=== PATIENT | female | born 1990 | race American Indian/Alaskan Native ===

== ENCOUNTER → 2021-02-25 11:16 | Outpatient (CLI) | payer OTHER, SELFPAY ==
--- NOTE | 2021-02-25 11:19 | DI.US.S_ITS ---
PROCEDURE: US OB <= 14 WEEKS FETUS INDICATIONS: DATING OUTSIDE/PRIOR DATING DATA: Last menstrual period (LMP): 12/17/2020. LMP-based estimated date of delivery (CHRISTINA): 09/23/2021. First dating scan (date and location): 02/25/2021. Estimated date of delivery (CHRISTINA) from first dating scan: 09/21/2021. TECHNIQUE: Real-time scanning was performed of the fetus and maternal pelvic organs, with image documentation. Endovaginal scanning was also performed to better visualize the fetus and maternal ovaries. COMPARISON: None. FINDINGS: Embryo: Single live intrauterine is identified with crown-rump length measuring 3.4 cm corresponding to 10 weeks 2 days. No sac is present. Heart rate: 175 beats per minute. Measurement variability in dating: +/- 4 weeks by LMP, +/- 7 days by mean sac diameter (use before 6 weeks gestation if crown-rump length not able to be measured), +/- 5 days by crown-rump length (up to 8 weeks 6 days gestation), +/- 7 days by crown-rump length (up to 13 weeks 6 days gestation). Maternal organs: Ovaries demonstrate a probable left corpus luteal cyst. Mild fluid is noted within the cervical canal. . IMPRESSION: 1. Single live intrauterine with ultrasound gestational age of 10 weeks 2 days. 2. Recommend followup imaging at 20-22 weeks for dates and anatomy. Dictated by: Mamie Angel M.D. on 02/25/2021 at 12:39 Approved by: Mamie Angel M.D. on 02/25/2021 at 12:41
[2021-02-25 12:53] LABS: Appearance Urine UA CLEAR; Bilirubin Urine UA NEGATIVE (NEGATIVE); Color Urine UA YELLOW; Glucose Urine UA NEGATIVE (Negative); Ketones Urine UA NEGATIVE (NEGATIVE); Leukocyte Esterase Urine UA NEGATIVE (NEGATIVE); Nitrite Urine UA NEGATIVE (Negative); Occult Blood Urine UA NEGATIVE (Negative); Protein Urine UA NEGATIVE (Negative); Specific Gravity Urine UA <=1.005 (1.000-1.035); Urobilinogen Urine UA 0.2 E.U./dL (0.2)
[2021-02-25 13:00] LABS: Add Manual Diff / Slide Review NO; Basophils Absolute Auto 100 /uL (0-100); Basophils Percent Auto 0.7 % (0-2); Eosinophils Absolute Auto 300 /uL (0-450); Eosinophils Percent Auto 3.1 % (2-4); Hematocrit 36.9 % (36-46); Hemoglobin 12.7 g/dL (12.0-16.0); Lymphocytes Absolute Auto 1600 /uL (1100-4500); Lymphocytes Percent Auto 17.7 % (25-40); Mean Corpuscular HGB Conc 34.3 % (30-36); Mean Corpuscular Hemoglobin 31.8 PG (26-34); Mean Corpuscular Volume 92.6 fL (80-100); Monocytes Absolute Auto 600 /uL (0-900); Neutrophils Absolute Auto 6700 /uL (1500-7000); Neutrophils Percent Auto 72.5 % (50-75); Platelet Count 235 X10^3/uL (150-400); Red Blood Cell Count 3.98 X10^6/uL (4.0-5.2); White Blood Cell Count 9.2 X10^3/uL (4.5-11.0)
[2021-02-25 13:07] LABS: pH Urine UA 6.5 (4.5-8.0)
[2021-02-25 18:12] LABS: Hepatitis B Surface Antigen NEGATIVE s/c (NEGATIVE)
[2021-02-25 18:20] LABS: HIV 1 & 2 Ab/Ag 4th Gen Combo NEGATIVE (NEGATIVE); Hep C Virus Ab w/Reflex Quant NEGATIVE s/c (NEGATIVE)
[2021-02-26 06:34] LABS: RPR Screen Non Reactive (Non Reactive)
[2021-02-26 09:42] LABS: Varicella IgG Antibody 353 index (Immune >165)
[2021-03-01 13:42] LABS: Rubella Antibody IgG 22.4 IU/mL (>15)
== END ==
PROVIDERS: Referring Provider Obstetrics & Gynecology; Visit Provider Obstetrics & Gynecology
DX: O36.80X0 Pregnancy with inconclusive fetal viability, not applicable or unspecified (principal); Z34.81 Encounter for supervision of other normal pregnancy, first trimester; Z3A.10 10 weeks gestation of pregnancy
CPT/HCPCS: 36415; 76801; 76817; 80055; 81003; 86787; 86803; 86850; 86900; 86901; 87086; 87389

== ENCOUNTER → 2021-03-11 13:05 | Outpatient (CLI) | payer OTHER, SELFPAY ==
[2021-03-11 13:19] LABS: Specimen Label NATERA SEND OUT KIT
== END ==
PROVIDERS: Referring Provider Obstetrics & Gynecology; Visit Provider Obstetrics & Gynecology
DX: Z36.0 Encounter for antenatal screening for chromosomal anomalies (principal)
CPT/HCPCS: 36415

== ENCOUNTER → 2021-04-01 15:28 | Outpatient (CLI) | payer OTHER, SELFPAY ==
[2021-04-03 22:35] LABS: AFP Value 28.2 ng/mL (.); Insulin Dep Diabetes No (.); OSBR Risk 1IN 10000 (.); Results Report (.); Test Results *Screen Negative* (.)
== END ==
PROVIDERS: Referring Provider Obstetrics & Gynecology; Visit Provider Obstetrics & Gynecology
DX: Z34.82 Encounter for supervision of other normal pregnancy, second trimester (principal); Z3A.16 16 weeks gestation of pregnancy
CPT/HCPCS: 36415; 82105

== ENCOUNTER → 2021-05-07 14:11 | Outpatient (CLI) | payer BC, OTHER, SELFPAY ==
--- NOTE | 2021-05-07 14:13 | DI.US.S_ITS ---
PROCEDURE: US OB >= 14 WEEKS FETUS INDICATIONS: 20 Week Anatomy Scan OUTSIDE/PRIOR DATING DATA: Last menstrual period (LMP): 12/17/2020. LMP-based estimated date of delivery (CHRISTINA): 09/23/2021. First dating scan (date and location): 02/25/2021. Estimated date of delivery (CHRISTINA) from first dating scan: 09/21/2021. The calculations are made using the ultrasound arrived CHRISTINA of 09/21/2021. TECHNIQUE: Real-time scanning was performed of the fetus, with image documentation and biometric measurements. COMPARISON: [facility], OB <= 14 WEEKS FETUS, 02/25/2021, 11:21. FINDINGS: General: A single living intrauterine gestation is present. Presentation: Variable. Placenta: Placental position is anterior , without previa. Amniotic fluid index: 14.8 cm, normal range is 5-24 cm. Single deepest vertical pocket is 4.3 cm. heart rate: 143 beats per minute. Maternal cervical canal: 5.7 cm long. Normal lower limit is 2.5 cm. biometrics: Biparietal diameter: 5 cm, 21 weeks 0 days Head circumference: 18.7 cm, 21 weeks 0 days Abdominal circumference: 16.7 cm, 21 weeks 5 days Femur length: 3.7 cm, 21 weeks 5 days Estimated gestational age from initial ultrasound: 20 weeks 3 days Composite gestational age from present scan: 21 weeks 3 days Estimated weight and percentile: 437 g corresponding to the 96th percentile Anatomic survey: Neuro: Ventricles are non-dilated at less than 10 mm. Cisterna magna is normal at 3-11 mm. Cerebellum is normal in size and morphology. Nuchal skin fold: Normal at less than 6 mm between 14-21 weeks gestational age. Face: Nose and lips, facial profile are normal. Spine: No evidence for spina bifida. Heart: 4-chambered heart is present, with normal ventricular outflow tracts. Diaphragm: Diaphragm is intact. Stomach: Left-sided stomach is present. Kidneys: No hydronephrosis. Normal is less than 5 mm in 2nd trimester, less than 7 mm in 3rd trimester. Cord: 3-vessel cord has orthotopic insertion. Bladder: Normal in size. Extremities: All 4 extremities identified. IMPRESSION: 1. Single living intrauterine demonstrating interval growth with estimated weight at the 96th percentile, suggestive of developing macrosomia. Recommend correlation clinically and continued follow-up. 2. anatomic survey within normal limits. We strive to produce accurate, complete, and clear reports of imaging services. To assist us in improving patient care, this report was composed using standard report templates and voice recognition software. Therefore, it may contain abnormal punctuation, insertions and/or omissions. Occasional wrong-word or sound-alike substitutions may occur. Though we review the report and make efforts to correct it, we do recommend that the report be read carefully in proper context to recognize any text inaccuracies. Dictated by: Kirill Zacarias M.D. on 05/07/2021 at 15:56 Approved by: Kirill Zacarias M.D. on 05/07/2021 at 16:00
== END ==
PROVIDERS: Referring Provider Obstetrics & Gynecology; Visit Provider Obstetrics & Gynecology
DX: Z34.92 Encounter for supervision of normal pregnancy, unspecified, second trimester (principal); Z3A.20 20 weeks gestation of pregnancy
CPT/HCPCS: 76811

== ENCOUNTER → 2021-06-17 12:54 | Outpatient (CLI) | payer BC, OTHER, SELFPAY ==
[2021-06-17 15:15] LABS: Hematocrit 33.5 % (36-46); Hemoglobin 11.4 g/dL (12.0-16.0)
[2021-06-17 15:43] LABS: GTT (PREG) 1 Hour PP 50gm Dose 130 mg/dL (76-139)
== END ==
PROVIDERS: Referring Provider Obstetrics & Gynecology; Visit Provider Obstetrics & Gynecology
DX: Z34.82 Encounter for supervision of other normal pregnancy, second trimester (principal); Z3A.25 25 weeks gestation of pregnancy
CPT/HCPCS: 36415; 82950; 85014; 85018

== ENCOUNTER → 2021-07-30 15:34 | Outpatient (CLI) | payer BC, OTHER, SELFPAY ==
[2021-07-30 17:02] LABS: Add Manual Diff / Slide Review NO; Basophils Absolute Auto 0 /uL (0-100); Basophils Percent Auto 0.3 % (0-2); Eosinophils Absolute Auto 200 /uL (0-450); Eosinophils Percent Auto 1.7 % (2-4); Lymphocytes Absolute Auto 2200 /uL (1100-4500); Lymphocytes Percent Auto 15.1 % (25-40); Mean Corpuscular HGB Conc 34.3 % (30-36); Mean Corpuscular Hemoglobin 32.8 PG (26-34); Mean Corpuscular Volume 95.8 fL (80-100); Monocytes Absolute Auto 700 /uL (0-900); Monocytes Percent Auto 4.6 % (3-14); Neutrophils Absolute Auto 11100 /uL (1500-7000); Neutrophils Percent Auto 78.3 % (50-75); Platelet Count 181 X10^3/uL (150-400); Red Blood Cell Count 3.65 X10^6/uL (4.0-5.2); Red Cell Distribution Width 12.4 % (11.6-14.8); White Blood Cell Count 14.3 X10^3/uL (4.5-11.0)
[2021-07-30 17:25] LABS: Alanine Aminotransferase 25 IU/L (<35); Albumin 4.1 g/dL (3.5-5.0); Albumin Globulin Ratio 1.1 (1.0-2.8); Alkaline Phosphatase 106 U/L (38-126); Aspartate Aminotransferase 28 IU/L (14-36); BUN Creatinine Ratio 11.9 (6-22); Bilirubin Total 0.6 mg/dL (0.2-1.3); Blood Urea Nitrogen 7 mg/dL (7-17); Carbon Dioxide 21 mmol/L (22-32); Chloride 103 mmol/L (98-107); Estimated Glomerular Filt Rate > 60 mL/min (>60); Globulin 3.9 g/dL (1.7-4.1); Glucose 148 mg/dL (70-100); HEMOLYSIS < 15 (0-50); Potassium 3.9 mmol/L (3.4-5.1); Sodium 136 mmol/L (137-145); Uric Acid 4.8 mg/dL (2.5-6.2)
[2021-07-30 19:28] LABS: Creatinine Urine Random 30.7 mg/dL; Protein (Total) Urine Random 11 mg/dL (0-12); Protein Creatinine Ratio Urine 0.35 GRAM/24H
== END ==
PROVIDERS: Obstetrics & Gynecology; Referring Provider Family Medicine; Visit Provider Family Medicine
DX: O16.9 Unspecified maternal hypertension, unspecified trimester (principal)
CPT/HCPCS: 36415; 80053; 82570; 84156; 84550; 85025

== ENCOUNTER 2021-08-01 12:17 | Observation (INO) | payer BC, OTHER, SELFPAY ==
--- NOTE | 2021-08-01 | DI.US.S_ITS ---
PROCEDURE: US OB LIMITED INDICATIONS: PRE-ECLAMPSIA; EFW, CORD DOPPLER OUTSIDE/PRIOR DATING DATA: Last menstrual period (LMP): 12/17/2020. LMP-based estimated date of delivery (CHRISTINA): 09/23/2021. First dating scan (date and location): 02/25/2021 at . Estimated date of delivery (CHRISTINA) from first dating scan: 09/21/2021. TECHNIQUE: Real-time scanning was performed of the fetus, with image documentation and biometric measurements. Biophysical profile was also obtained. COMPARISON: [facility], OB >= 14 WEEKS FETUS, 05/07/2021, 14:26. [facility], OB <= 14 WEEKS FETUS, 02/25/2021, 11:21. FINDINGS: General: A single living intrauterine gestation is present. Presentation: Vertex. Placenta: Placental position is anterior , without previa. Amniotic fluid index: 7.3 cm, normal range is 5-24 cm. Single deepest vertical pocket is 2.3 cm. heart rate: 136 beats per minute. Maternal cervical canal: 3.4 cm long. Normal lower limit is 2.5 cm. biometrics: Biparietal diameter: 33 weeks 3 days Head circumference: 32 weeks 5 days Abdominal circumference: 32 weeks 1 day Femur length: 33 weeks 1 day Clinically estimated gestational age: 32 weeks 5 days Composite gestational age from present scan: 32 weeks 6 days Estimated weight and percentile: 2015 g; 37% Umbilical artery Doppler: S/D = 2.2-3.5 IMPRESSION: 1. A single living intrauterine gestation redemonstrated. There is appropriate interval growth. The estimated weight is 2015 g, 37% for gestational age. 2. Normal cord Doppler with preserved diastolic flow. 3. VICKEY = 7.3 cm, concerning for developing oligohydramnios. We strive to produce accurate, complete, and clear reports of imaging services. To assist us in improving patient care, this report was composed using standard report templates and voice recognition software. Therefore, it may contain abnormal punctuation, insertions and/or omissions. Occasional wrong-word or sound-alike substitutions may occur. Though we review the report and make efforts to correct it, we do recommend that the report be read carefully in proper context to recognize any text inaccuracies. Dictated by: Thanh Mantilla M.D. on 08/01/2021 at 14:36 Approved by: Thanh Mantilla M.D. on 08/01/2021 at 14:44
[2021-08-01 12:53] LABS: Add Manual Diff / Slide Review YES; Hematocrit 33.6 % (36-46); Hemoglobin 11.4 g/dL (12.0-16.0); Mean Corpuscular Hemoglobin 32.5 PG (26-34); Mean Corpuscular Volume 95.4 fL (80-100); Platelet Count 190 X10^3/uL (150-400); Red Blood Cell Count 3.53 X10^6/uL (4.0-5.2); Red Cell Distribution Width 12.3 % (11.6-14.8); White Blood Cell Count 13.7 X10^3/uL (4.5-11.0)
--- NOTE | 2021-08-01 13:16 | PM.OBTRLD ---
Visit Information Visit Information Date of evaluation: 08/01/21 Primary OB Provider: Cyrus Bocanegra Reason for Evaluation: Yes non-stress test Comments/Additional reasons for admission: Patient has experienced elevated blood pressure and her most recent protein to creatinine ratio is elevated at 0.35. Patient presents today for her 1st twice weekly NST and laboratory assessment along with a growth ultrasound and Doppler studies. Patient is scheduled to be seen at [facility] next week and has been started on labetalol 200 mg p.o. b.i.d.. Vital Signs Vital Signs: 133/81; 132/83; 133/85; 124/73 [facility] Medical History (Updated 08/01/21 @ 17:56 by Cyrus Bocanegra MD) Abnormal Pap smear of cervix (~2009) Chicken pox (~1993) Generalized anxiety disorder with panic attacks Heart murmur of Migraine (~2020) Surgical History (Updated 03/16/21 @ 20:05 by More Macias) [place] teeth extracted Family History (Updated 03/16/21 @ 20:07 by More Macias) Mother Alcoholic Family estrangement Father Myocardial infarction Stented coronary artery Grandmother Asthma Colostomy in place Grandfather Alcoholic Family history unknown Grandmother No problems noted. 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 ) substance use type: does not use during the past year weight has: remained stable well-balanced diet: daily or most days daily servings fruits/ve-4 caffeine: Yes (1/2 cup coffee daily. Cutting back on soda.) Type(s) of exercise: walking (daily walks and hiking), resistance training (Strength training & pilates. ) and yoga frequency: 3-4 times per week duration: 30-45 minutes/day Exam Const General: cooperative and comfortable Nutritional Appearance: average body habitus Orientation: alert and oriented x3 HENMT Head: normal to inspection Face and sinus: face symmetric Eyes General: appearance normal, both eyes and all related structures Neck Neck: normal visual inspection Resp Effort & Inspection: normal respiratory effort and able to speak in complete sentences Cardio Rate: regular rate Rhythm: regular rhythm Heart Sounds: S1 normal, S2 normal and no murmurs GI Inspection: normal to inspection Palpation: soft and no hepatosplenomegaly Uterus Location (Fundal Height): 34 Estimated Weight (lbs): 4 Extrem General: no calf tenderness and edema (Trace pedal edema, symmetrical) Psych Appearance: grossly normal Mental Status: mental status grossly normal Speech and Movement: speech and movement normal Mood: congruent mood Affect: normal affect Attitude: cooperative Thought Process: normal Thought Content: normal Judgment: judgment good Objective Labs Result Diagrams: 08/01/21 12:40 Labs: Laboratory Results - last 24 hr 08/01/21 12:40 WBC 13.7 H RBC 3.53 L Hgb 11.4 L Hct 33.6 L MCV 95.4 MCH 32.5 MCHC 34.0 RDW 12.3 Plt Count 190 Neut % (Auto) Not Reportable Lymph % (Auto) Not Reportable [place] % (Auto) Not Reportable Eos % (Auto) Not Reportable Baso % (Auto) Not Reportable Lymph # (Auto) Not Reportable [place] # (Auto) Not Reportable Baso # (Auto) Not Reportable Evaluation Evaluation Baseline heart rate: 125 Variability: Marked (>25) monitor accelerations: Present Monitor Decelerations: Absent Contraction Frequency (minutes): 3 Uterine Contraction Intensity: Mild Status: Category l Comments: Patient does not feel contractions or cramping despite regular contractions seen on external monitoring. Diagnosis, Plan/Disposition Final Diagnosis (1) Pre-eclampsia affecting , antepartum: Status: Acute (2) UTI (urinary tract infection): Status: Acute Plan/Disposition Plan: Increasing protein to creatinine ratio is concerning but in the face of probable UTI based on urinalysis, will treat the UTI, closely observe blood pressures at home, initiate Macrodantin 100 mg p.o. b.i.d. and labetalol 200 mg p.o. b.i.d.. Patient again counseled regarding signs/symptoms of severe blood pressure elevations/preeclampsia. Follow-up will be on Wednesday08/05/2021 for NST and labs or as needed. OB Disposition: home
[2021-08-01 13:25] LABS: Neutrophils Absolute Manual 10686 /uL (3000-5900); Total Cells Counted 100
[2021-08-01 13:26] LABS: RBC Morphology Normal Morphology
[2021-08-01 13:36] LABS: Creatinine Urine Random 16.1 mg/dL; Protein (Total) Urine Random 12 mg/dL (0-12); Protein Creatinine Ratio Urine 0.74 GRAM/24H
[2021-08-01 14:30] LABS: Appearance Urine UA CLEAR; Bilirubin Urine UA NEGATIVE (NEGATIVE); Color Urine UA YELLOW; Glucose Urine UA NEGATIVE (Negative); Ketones Urine UA NEGATIVE (NEGATIVE); Leukocyte Esterase Urine UA TRACE (NEGATIVE); Nitrite Urine UA NEGATIVE (Negative); Occult Blood Urine UA NEGATIVE (Negative); Protein Urine UA NEGATIVE (Negative); Specific Gravity Urine UA <=1.005 (1.000-1.035); Urobilinogen Urine UA 0.2 E.U./dL (0.2)
[2021-08-01 14:32] LABS: Alanine Aminotransferase 22 IU/L (<35); Albumin 3.9 g/dL (3.5-5.0); Albumin Globulin Ratio 1.1 (1.0-2.8); Alkaline Phosphatase 123 U/L (38-126); Aspartate Aminotransferase 26 IU/L (14-36); Bilirubin Total 0.5 mg/dL (0.2-1.3); Bilirubin Unconjugated 0.7 mg/dL (0.0-1.1); Globulin 3.5 g/dL (1.7-4.1); HEMOLYSIS < 15 (0-50); Total Protein 7.4 g/dL (6.3-8.2); Uric Acid 4.1 mg/dL (2.5-6.2)
[2021-08-01 14:35] LABS: pH Urine UA 6.5 (4.5-8.0)
[2021-08-01 14:36] LABS: RBC Urine None Seen (0-5/HPF); WBC Urine 5-10/HPF (0-5/HPF)
[2021-08-01 14:37] LABS: Amorphous Sediment Urine 1+; Bacteria Urine Many (>30); Culture Indicated Urine Specimen Cultured; Squamous Epithelial Cell Urine 1-5 /HPF (0-5/HPF)
[2021-08-01] MEDS: NITROFURANTOIN ER 100 MG CAPSULE PO (15:06)
== END 2021-08-01 15:09 | disposition home or self-care (01) ==
PROVIDERS: Admitting Provider Obstetrics & Gynecology; Referring Provider Obstetrics & Gynecology; Visit Provider Obstetrics & Gynecology
DX: O14.93 Unspecified pre-eclampsia, third trimester (principal); O23.43 Unspecified infection of urinary tract in pregnancy, third trimester; N39.0 Urinary tract infection, site not specified; Z3A.32 32 weeks gestation of pregnancy
CPT/HCPCS: 36415; 59025; 59050; 76815; 76819; 76820; 80076; 81001; 82570; 84156; 84550; 85007; 85025; 87086; G0378; G0379

== ENCOUNTER 2021-08-05 12:01 | Outpatient (CLI) | payer BC, OTHER, SELFPAY ==
--- NOTE | 2021-08-05 12:34 | PM.OBTRLD ---
Visit Information Visit Information Date of evaluation: 08/05/21 Primary OB Provider: Cyrus Bocanegra On-call OB Provider: Ofelia Clark Reason for Evaluation: Yes non-stress test non-stress test reason: hypertension/pre-eclampsia Comments/Additional reasons for admission: 30yo at 33w0d here for NST for pre-eclampsia without severe features. Pt denies any RUQ pain, vision changes, swelling, headache. She denies vaginal bleeding, LOF, contractions. She is feeling her baby move regularly. [facility] Medical History (Updated 08/06/21 @ 07:35 by Ofelia Clark MD) Abnormal Pap smear of cervix (~2009) Chicken pox (~1993) Generalized anxiety disorder with panic attacks Heart murmur of Migraine (~2020) Surgical History (Updated 03/16/21 @ 20:05 by More Macias) [place] teeth extracted Family History (Updated 03/16/21 @ 20:07 by More Macias) Mother Alcoholic Family estrangement Father Myocardial infarction Stented coronary artery Grandmother Asthma Colostomy in place Grandfather Alcoholic Family history unknown Grandmother No problems noted. 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 ) substance use type: does not use during the past year weight has: remained stable well-balanced diet: daily or most days daily servings fruits/ve-4 caffeine: Yes (1/2 cup coffee daily. Cutting back on soda.) Type(s) of exercise: walking (daily walks and hiking), resistance training (Strength training & pilates. ) and yoga frequency: 3-4 times per week duration: 30-45 minutes/day Objective Labs Result Diagrams: 08/05/21 13:00 08/05/21 13:00 Evaluation Evaluation Baseline heart rate: 130 Variability: Moderate (11-25) monitor accelerations: Present Monitor Decelerations: Absent Category of Tracing: Reactive Diagnosis, Plan/Disposition Final Diagnosis (1) Pre-eclampsia affecting , antepartum: Status: Acute (2) 33 weeks gestation of : Status: Acute Plan/Disposition Plan: 30yo at 33w0d here for NST for pre-eclampsia without severe features. Lab work reassuring, no evidence of HELLP. Pr/Cr ratio now normalized. Question if elevated previously due to UTI. Pt does have MFM appt scheduled already to evaluate further. NST reactive today. Safe for d/c home. Continue twice weekly NSTs with weekly labs. OB Disposition: home
[2021-08-05 13:09] LABS: Add Manual Diff / Slide Review NO; Basophils Absolute Auto 100 /uL (0-100); Basophils Percent Auto 0.7 % (0-2); Eosinophils Absolute Auto 200 /uL (0-450); Eosinophils Percent Auto 1.7 % (2-4); Hematocrit 30.7 % (36-46); Hemoglobin 10.8 g/dL (12.0-16.0); Lymphocytes Absolute Auto 1700 /uL (1100-4500); Lymphocytes Percent Auto 15.6 % (25-40); Mean Corpuscular HGB Conc 35.2 % (30-36); Mean Corpuscular Hemoglobin 33.5 PG (26-34); Mean Corpuscular Volume 95.2 fL (80-100); Monocytes Absolute Auto 800 /uL (0-900); Monocytes Percent Auto 7.4 % (3-14); Neutrophils Absolute Auto 8100 /uL (1500-7000); Neutrophils Percent Auto 74.6 % (50-75); Platelet Count 173 X10^3/uL (150-400); Red Blood Cell Count 3.22 X10^6/uL (4.0-5.2); Red Cell Distribution Width 12.4 % (11.6-14.8); White Blood Cell Count 10.9 X10^3/uL (4.5-11.0)
[2021-08-05 13:21] LABS: Aspartate Aminotransferase 28 IU/L (14-36); BUN Creatinine Ratio 12.8 (6-22); Blood Urea Nitrogen 10 mg/dL (7-17); Estimated Glomerular Filt Rate > 60 mL/min (>60); Uric Acid 4.9 mg/dL (2.5-6.2)
[2021-08-05 13:55] LABS: Creatinine Urine Random 82.3 mg/dL; Protein (Total) Urine Random 8 mg/dL (0-12); Protein Creatinine Ratio Urine 0.09 GRAM/24H
== END 2021-08-05 13:09 | disposition home or self-care (01) ==
LOC: LABOR 13:05 → OB 08-07 07:26
PROVIDERS: PCP Nurse Practitioner Family; Referring Provider Obstetrics & Gynecology; Visit Provider Obstetrics & Gynecology
DX: O14.03 Mild to moderate pre-eclampsia, third trimester (principal); Z3A.33 33 weeks gestation of pregnancy
CPT/HCPCS: 36415; 59025; 82570; 84156; 84450; 84550; 85025; G0378; G0379

== ENCOUNTER 2021-08-08 13:03 | Outpatient (CLI) | payer BC, OTHER, SELFPAY | END 2021-08-08 13:50 | disposition home or self-care (01) | LOC: LABOR 13:45 → OB 08-12 07:27 | PROVIDERS: PCP Nurse Practitioner Family; Referring Provider Obstetrics & Gynecology; Visit Provider Obstetrics & Gynecology | DX: O26.893 Other specified pregnancy related conditions, third trimester (principal); Z3A.33 33 weeks gestation of pregnancy; O13.3 Gestational [pregnancy-induced] hypertension without significant proteinuria, third trimester; R21 Rash and other nonspecific skin eruption; O14.90 Unspecified pre-eclampsia, unspecified trimester | CPT/HCPCS: 36415; 59025; 80053; 82570; 84156; 84550; 85025; G0378; G0379 ==

== ENCOUNTER → 2021-08-08 14:20 | Outpatient (CLI) | payer BC, OTHER, SELFPAY ==
[2021-08-08 15:53] LABS: Creatinine Urine Random 27.8 mg/dL; Protein (Total) Urine Random 12 mg/dL (0-12); Protein Creatinine Ratio Urine 0.43 GRAM/24H
== END ==
PROVIDERS: PCP Nurse Practitioner Family; Visit Provider Obstetrics & Gynecology
DX: O14.90 Unspecified pre-eclampsia, unspecified trimester (principal); O16.9 Unspecified maternal hypertension, unspecified trimester
CPT/HCPCS: 82570; 84156

== ENCOUNTER → 2021-08-08 14:35 | Outpatient (CLI) | payer BC, OTHER, SELFPAY ==
[2021-08-08 15:27] LABS: Add Manual Diff / Slide Review NO; Basophils Absolute Auto 100 /uL (0-100); Basophils Percent Auto 0.6 % (0-2); Eosinophils Absolute Auto 300 /uL (0-450); Hematocrit 31.6 % (36-46); Lymphocytes Absolute Auto 1500 /uL (1100-4500); Lymphocytes Percent Auto 15.4 % (25-40); Mean Corpuscular HGB Conc 34.6 % (30-36); Mean Corpuscular Hemoglobin 32.9 PG (26-34); Mean Corpuscular Volume 95.2 fL (80-100); Monocytes Absolute Auto 700 /uL (0-900); Monocytes Percent Auto 7.5 % (3-14); Neutrophils Absolute Auto 7200 /uL (1500-7000); Neutrophils Percent Auto 73.5 % (50-75); Platelet Count 179 X10^3/uL (150-400); Red Blood Cell Count 3.32 X10^6/uL (4.0-5.2); Red Cell Distribution Width 12.3 % (11.6-14.8); White Blood Cell Count 9.8 X10^3/uL (4.5-11.0)
[2021-08-08 15:54] LABS: Alanine Aminotransferase 24 IU/L (<35); Albumin 3.7 g/dL (3.5-5.0); Albumin Globulin Ratio 1.1 (1.0-2.8); Alkaline Phosphatase 105 U/L (38-126); Aspartate Aminotransferase 27 IU/L (14-36); Bilirubin Total 0.6 mg/dL (0.2-1.3); Blood Urea Nitrogen 9 mg/dL (7-17); Calcium 9.2 mg/dL (8.4-10.2); Carbon Dioxide 20 mmol/L (22-32); Chloride 107 mmol/L (98-107); Estimated Glomerular Filt Rate > 60 mL/min (>60); Globulin 3.4 g/dL (1.7-4.1); Glucose 95 mg/dL (70-100); HEMOLYSIS < 15 (0-50); Potassium 3.7 mmol/L (3.4-5.1); Sodium 136 mmol/L (137-145); Total Protein 7.1 g/dL (6.3-8.2); Uric Acid 4.5 mg/dL (2.5-6.2)
== END ==
PROVIDERS: PCP Nurse Practitioner Family; Referring Provider Obstetrics & Gynecology; Visit Provider Obstetrics & Gynecology
DX: O16.9 Unspecified maternal hypertension, unspecified trimester (principal)
CPT/HCPCS: 36415; 80053; 84550; 85025

== ENCOUNTER 2021-08-11 13:22 | Emergency (ER) | payer BC, OTHER, SELFPAY ==
[2021-08-11 13:51] VITALS: BP 144/95; PULSE 111; RESP 20; TEMP 36.6; O2SAT 97; BMI 32.4
--- NOTE | 2021-08-11 15:24 | PC.NURSE ---
Spoke w/ Center. Concern is for PUPPS / HTN. Discussed w/ center RN who will take pt rather than have her seen in ED. W/C to Center w/ ED RN,.
== END 2021-08-11 15:27 | disposition left against medical advice (07) ==
PROVIDERS: Emergency Provider Emergency Medicine; PCP Nurse Practitioner Family
DX: R21 Rash and other nonspecific skin eruption (principal)

== ENCOUNTER 2021-08-11 15:28 | Outpatient (CLI) | payer BC, OTHER, SELFPAY ==
--- NOTE | 2021-08-11 23:35 | PM.OBTRLD ---
Visit Information Visit Information Date of evaluation: 08/11/21 Primary OB Provider: Cyrus Bocanegra On-call OB Provider: Audelia Peñaloza Reason for Evaluation: Yes other Comments/Additional reasons for admission: This patient is a 30yo @34 weeks gestation being monitored for gHTN on labetalol for the past two weeks, admitted to labor and delivery. The patient presented to the emergency department reporting hives for several hours and a sensation of wheezing, and was transferred directly to L&D prior to evaluation as she is . She denies a history of asthma or severe allergies, denies new medications or other exposures, and denies dFM, ctx, LOF, VB, [place], visual changes, RUQ pain, or nausea. Vital Signs Vital Signs: 122/75, HR 101, O2 sat 97% PFSH Medical History (Updated 08/14/21 @ 07:31 by Cyrus Bocanegra MD) Abnormal Pap smear of cervix (~2009) Chicken pox (~1993) Generalized anxiety disorder with panic attacks Heart murmur of Migraine (~2020) Surgical History (Updated 03/16/21 @ 20:05 by More Macias) [place] teeth extracted Family History (Updated 03/16/21 @ 20:07 by More Macias) Mother Alcoholic Family estrangement Father Myocardial infarction Stented coronary artery Grandmother Asthma Colostomy in place Grandfather Alcoholic Family history unknown Grandmother No problems noted. 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 ) substance use type: does not use during the past year weight has: remained stable well-balanced diet: daily or most days daily servings fruits/ve-4 caffeine: Yes (1/2 cup coffee daily. Cutting back on soda.) Type(s) of exercise: walking (daily walks and hiking), resistance training (Strength training & pilates. ) and yoga frequency: 3-4 times per week duration: 30-45 minutes/day Evaluation Evaluation Baseline heart rate: 140 Variability: Moderate (11-25) monitor accelerations: Present Monitor Decelerations: Absent Category of Tracing: Reactive Status: Category l Diagnosis, Plan/Disposition Plan/Disposition Plan: The patient was seen and evaluated by staff prior to a physician being available to evaluate. After normal vitals and a reactive NST, the patient requested discharge home rather than being transferred back to the ED for evaluation of her breathing. Precautions were discussed with the patient by nursing staff. OB Disposition: home
== END 2021-08-11 16:59 | disposition home or self-care (01) ==
LOC: LABOR 15:47 → OB 08-14 07:45
PROVIDERS: PCP Nurse Practitioner Family; Referring Provider Obstetrics & Gynecology; Visit Provider Obstetrics & Gynecology
DX: O26.893 Other specified pregnancy related conditions, third trimester (principal); R21 Rash and other nonspecific skin eruption; Z3A.33 33 weeks gestation of pregnancy
CPT/HCPCS: 59025; G0378; G0379

== ENCOUNTER → 2021-08-13 13:12 | Outpatient (CLI) | payer BC, OTHER, SELFPAY ==
[2021-08-13 16:25] LABS: Collection Time Urine 24 Hours; Protein (Total) Urine Random 23 mg/dL (0-12); Total Protein 24 Hour Urine 644 mg/day (42-225); Total Volume Urine 2800 mL
== END ==
PROVIDERS: PCP Nurse Practitioner Family; Referring Provider Obstetrics & Gynecology; Visit Provider Obstetrics & Gynecology
DX: O16.3 Unspecified maternal hypertension, third trimester (principal); O99.891 Other specified diseases and conditions complicating pregnancy; N89.8 Other specified noninflammatory disorders of vagina
CPT/HCPCS: 84156; 87255

== ENCOUNTER 2021-08-13 15:33 | Outpatient (CLI) | payer BC, OTHER, SELFPAY ==
[2021-08-13 16:49] LABS: Add Manual Diff / Slide Review NO; Basophils Absolute Auto 0 /uL (0-100); Basophils Percent Auto 0.5 % (0-2); Eosinophils Absolute Auto 700 /uL (0-450); Eosinophils Percent Auto 7.2 % (2-4); Hematocrit 31.4 % (36-46); Hemoglobin 11.1 g/dL (12.0-16.0); Lymphocytes Absolute Auto 1300 /uL (1100-4500); Lymphocytes Percent Auto 13.6 % (25-40); Mean Corpuscular HGB Conc 35.4 % (30-36); Mean Corpuscular Hemoglobin 33.5 PG (26-34); Mean Corpuscular Volume 94.7 fL (80-100); Monocytes Absolute Auto 1000 /uL (0-900); Monocytes Percent Auto 10.1 % (3-14); Neutrophils Absolute Auto 6700 /uL (1500-7000); Neutrophils Percent Auto 68.6 % (50-75); Platelet Count 162 X10^3/uL (150-400); Red Blood Cell Count 3.32 X10^6/uL (4.0-5.2); Red Cell Distribution Width 12.5 % (11.6-14.8); White Blood Cell Count 9.8 X10^3/uL (4.5-11.0)
[2021-08-13 17:19] LABS: Alanine Aminotransferase 42 IU/L (<35); Albumin 3.6 g/dL (3.5-5.0); Alkaline Phosphatase 155 U/L (38-126); Aspartate Aminotransferase 51 IU/L (14-36); BUN Creatinine Ratio 10.3 (6-22); Bilirubin Total 0.6 mg/dL (0.2-1.3); Blood Urea Nitrogen 7 mg/dL (7-17); Calcium 8.9 mg/dL (8.4-10.2); Carbon Dioxide 19 mmol/L (22-32); Estimated Glomerular Filt Rate > 60 mL/min (>60); Globulin 3.6 g/dL (1.7-4.1); Glucose 94 mg/dL (70-100); HEMOLYSIS < 15 (0-50); Potassium 3.9 mmol/L (3.4-5.1); Total Protein 7.2 g/dL (6.3-8.2); Uric Acid 4.6 mg/dL (2.5-6.2)
[2021-08-13 17:53] LABS: Chloride 108 mmol/L (98-107); Sodium 135 mmol/L (137-145)
[2021-08-21 12:58] LABS: Parvovirus B19 IgG 0.4 index (0.0-0.8); Parvovirus B19 IgM 0.1 index (0.0-0.8)
== END 2021-08-13 17:25 | disposition home or self-care (01) ==
LOC: LABOR 15:58 → OB 08-19 06:34
PROVIDERS: PCP Nurse Practitioner Family; Referring Provider Obstetrics & Gynecology; Visit Provider Obstetrics & Gynecology
DX: O14.93 Unspecified pre-eclampsia, third trimester (principal); Z3A.34 34 weeks gestation of pregnancy; O99.891 Other specified diseases and conditions complicating pregnancy; N89.8 Other specified noninflammatory disorders of vagina
CPT/HCPCS: 36415; 59025; 80053; 84156; 84550; 85025; 86747; 87255; G0378; G0379

== ENCOUNTER → 2021-08-14 15:25 | Outpatient (CLI) | payer BC, OTHER, SELFPAY ==
[2021-08-14 16:36] LABS: Alanine Aminotransferase 50 IU/L (<35); Albumin 3.7 g/dL (3.5-5.0); Alkaline Phosphatase 168 U/L (38-126); Aspartate Aminotransferase 50 IU/L (14-36); Bilirubin Total 0.7 mg/dL (0.2-1.3); Bilirubin Unconjugated 0.5 mg/dL (0.0-1.1); Globulin 3.7 g/dL (1.7-4.1); HEMOLYSIS < 15 (0-50); Total Protein 7.4 g/dL (6.3-8.2)
[2021-08-14 17:00] LABS: Creatinine Urine Random 84.3 mg/dL; Protein (Total) Urine Random 17 mg/dL (0-12)
[2021-08-18 13:11] LABS: Parvovirus B19 IgG 0.2 index (0.0-0.8); Parvovirus B19 IgM 0.1 index (0.0-0.8)
== END ==
PROVIDERS: PCP Nurse Practitioner Family; Referring Provider Obstetrics & Gynecology; Visit Provider Obstetrics & Gynecology
DX: O16.9 Unspecified maternal hypertension, unspecified trimester (principal); R74.01 Elevation of levels of liver transaminase levels; O12.13 Gestational proteinuria, third trimester; R21 Rash and other nonspecific skin eruption
CPT/HCPCS: 36415; 80076; 82570; 84156; 86747

== ENCOUNTER → 2021-08-18 17:15 | Outpatient (CLI) | payer BC, OTHER, SELFPAY ==
[2021-08-18 18:10] LABS: Alanine Aminotransferase 62 IU/L (<35); Albumin 3.7 g/dL (3.5-5.0); Alkaline Phosphatase 156 U/L (38-126); Aspartate Aminotransferase 51 IU/L (14-36); BUN Creatinine Ratio 13.5 (6-22); Bilirubin Total 0.5 mg/dL (0.2-1.3); Blood Urea Nitrogen 10 mg/dL (7-17); Calcium 9.3 mg/dL (8.4-10.2); Carbon Dioxide 23 mmol/L (22-32); Chloride 104 mmol/L (98-107); Estimated Glomerular Filt Rate > 60 mL/min (>60); Globulin 3.6 g/dL (1.7-4.1); Glucose 116 mg/dL (70-100); HEMOLYSIS < 15 (0-50); Potassium 3.9 mmol/L (3.4-5.1); Sodium 135 mmol/L (137-145); Total Protein 7.3 g/dL (6.3-8.2); Uric Acid 5.9 mg/dL (2.5-6.2)
[2021-08-18 18:14] LABS: C-Reactive Protein Quant 1.5 mg/dL (<1.0)
[2021-08-18 18:27] LABS: Add Manual Diff / Slide Review NO; Basophils Absolute Auto 100 /uL (0-100); Basophils Percent Auto 0.8 % (0-2); Eosinophils Absolute Auto 1200 /uL (0-450); Eosinophils Percent Auto 9.4 % (2-4); Hematocrit 31.3 % (36-46); Hemoglobin 11.1 g/dL (12.0-16.0); Lymphocytes Absolute Auto 2000 /uL (1100-4500); Lymphocytes Percent Auto 15.2 % (25-40); Mean Corpuscular HGB Conc 35.4 % (30-36); Mean Corpuscular Volume 93.2 fL (80-100); Monocytes Absolute Auto 800 /uL (0-900); Monocytes Percent Auto 6.3 % (3-14); Neutrophils Absolute Auto 8800 /uL (1500-7000); Neutrophils Percent Auto 68.3 % (50-75); Platelet Count 224 X10^3/uL (150-400); Red Blood Cell Count 3.36 X10^6/uL (4.0-5.2); Red Cell Distribution Width 12.4 % (11.6-14.8); White Blood Cell Count 12.9 X10^3/uL (4.5-11.0)
[2021-08-18 18:29] LABS: Creatinine Urine Random 121.4 mg/dL; Protein (Total) Urine Random 8 mg/dL (0-12); Protein Creatinine Ratio Urine 0.06 GRAM/24H
[2021-08-18 18:46] LABS: Hepatitis B Surface Antigen NEGATIVE s/c (NEGATIVE)
[2021-08-18 19:08] LABS: Hep C Virus Ab w/Reflex Quant NEGATIVE s/c (NEGATIVE)
[2021-08-19 05:23] LABS: Complement C3 183 mg/dL (82-167)
[2021-08-20 14:42] LABS: ANA Screen, IFA Negative (.)
[2021-09-02 13:10] LABS: Cardiolipin IgA Negative
== END ==
PROVIDERS: PCP Nurse Practitioner Family; Referring Provider Obstetrics & Gynecology; Visit Provider Obstetrics & Gynecology
DX: O12.13 Gestational proteinuria, third trimester (principal); O16.3 Unspecified maternal hypertension, third trimester; R21 Rash and other nonspecific skin eruption; R74.01 Elevation of levels of liver transaminase levels
CPT/HCPCS: 80053; 82570; 83520; 84156; 84550; 85025; 86038; 86140; 86147; 86148; 86160; 86803; 87340

== ENCOUNTER 2021-08-22 13:43 | Observation (INO) | payer BC, OTHER, SELFPAY ==
--- NOTE | 2021-08-22 | DI.US.S_ITS ---
PROCEDURE: US OB LIMITED INDICATIONS: Gestational hypertension, elevated LFTs, oligohydramnios OUTSIDE/PRIOR DATING DATA: Last menstrual period (LMP): 12/17/20. LMP-based estimated date of delivery (CHRISTINA): 09/23/2021. First dating scan (date and location): 02/25/2021. Estimated date of delivery (CHRISTINA) from first dating scan: 02/25/2021 at [facility] The calculations are made using the ultrasound CHRISTINA of 09/21/2021. TECHNIQUE: Real-time scanning was performed of the fetus, with image documentation. COMPARISON: [facility], , US OB LIMITED, 08/01/2021, 13:23. FINDINGS: A single living intrauterine gestation is present. Presentation: Cephalic. Placenta: Placental position is anterior, without previa. Amniotic fluid index: 2.9 cm, normal range is 5-24 cm. heart rate: 169 beats per minute. Maternal cervical canal: The cervix is not seen. Estimated gestational age from initial scan: 35 weeks 5 days. Estimated gestational age today: 34 weeks 5 days Estimated weight: 2358 g, 13th percentile. Biophysical profile 09/24 (tone 2, movement 2, respiration 2, largest pocket 0) Umbilical artery S/D: 2.75, 2.66 anatomy: The stomach/abdomen, left renal region, and urinary bladder and pelvis are normal. Other anatomic structures are not well seen. IMPRESSION: 1. Oligohydramnios. 2. Single live intrauterine with a composite gestational age of 35 weeks 5 days. 3. The cervix is not seen. 4. Biophysical profile 09/24. Dictated by: Irvin Da Silva M.D. on 08/22/2021 at 16:12 Approved by: Irvin Da Silva M.D. on 08/22/2021 at 16:17
[2021-08-22 14:36] LABS: Add Manual Diff / Slide Review NO; Basophils Absolute Auto 100 /uL (0-100); Basophils Percent Auto 0.6 % (0-2); Eosinophils Absolute Auto 1300 /uL (0-450); Eosinophils Percent Auto 7.2 % (2-4); Hematocrit 31.6 % (36-46); Lymphocytes Absolute Auto 2300 /uL (1100-4500); Mean Corpuscular HGB Conc 34.6 % (30-36); Mean Corpuscular Hemoglobin 32.8 PG (26-34); Mean Corpuscular Volume 94.6 fL (80-100); Monocytes Absolute Auto 1100 /uL (0-900); Monocytes Percent Auto 6.2 % (3-14); Neutrophils Absolute Auto 12800 /uL (1500-7000); Platelet Count 239 X10^3/uL (150-400); Red Blood Cell Count 3.34 X10^6/uL (4.0-5.2); Red Cell Distribution Width 12.3 % (11.6-14.8); White Blood Cell Count 17.5 X10^3/uL (4.5-11.0)
[2021-08-22 15:31] LABS: Creatinine Urine Random 67.3 mg/dL; Protein (Total) Urine Random 11 mg/dL (0-12); Protein Creatinine Ratio Urine 0.16 GRAM/24H
--- NOTE | 2021-08-22 15:48 | P.TNLD_ITS ---
Visit Information Visit Information Date of evaluation: 08/22/21 Primary OB Provider: Cyrus Bocanegra Reason for Evaluation: Yes non-stress test Comments/Additional reasons for admission: Gestational hypertension, elevated liver function studies possible evolving preeclampsia. No complaints of H/A, visual changes, RUQ pain. Her rash has completely resolved as have her myalgias. No fever noted. Baby remains active but no contractions. Vital Signs Vital Signs: 135/84, 133/86 [facility] Medical History (Updated 08/23/21 @ 10:09 by Cyrus Bocanegra MD) Abnormal Pap smear of cervix (~2009) Chicken pox (~1993) Generalized anxiety disorder with panic attacks Heart murmur of Migraine (~2020) Surgical History (Updated 03/16/21 @ 20:05 by More Macias) [place] teeth extracted Family History (Updated 03/16/21 @ 20:07 by More Macias) Mother Alcoholic Family estrangement Father Myocardial infarction Stented coronary artery Grandmother Asthma Colostomy in place Grandfather Alcoholic Family history unknown Grandmother No problems noted. 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 ) substance use type: does not use during the past year weight has: remained stable well-balanced diet: daily or most days daily servings fruits/ve-4 caffeine: Yes (1/2 cup coffee daily. Cutting back on soda.) Type(s) of exercise: walking (daily walks and hiking), resistance training (Strength training & pilates. ) and yoga frequency: 3-4 times per week duration: 30-45 minutes/day Review of Systems Review of Systems Narrative: Problem-specific ROS positives included with HPI. Exam Const General: cooperative, comfortable and anxious Nutritional Appearance: average body habitus Orientation: alert and oriented x3 [facility] Head: normal to inspection Ears: hearing grossly normal bilaterally Face and sinus: face symmetric Eyes General: appearance normal, both eyes and all related structures Conjunctivae: conjunctivae normal Sclera: sclerae normal EOM: EOM intact bilaterally Neck Neck: normal visual inspection Resp Effort & Inspection: normal respiratory effort and able to speak in complete sentences GI Inspection: normal to inspection Palpation: soft, no hepatosplenomegaly and No tender Uterus Location (Fundal Height): 35 Presentation: vertex Estimated Weight (lbs): 6 Neuro DTR's: Rt Patellar: 1+ and Lt Patellar: 1+ Extrem General: normal to inspection, no pedal edema and no calf tenderness Psych Appearance: grossly normal Mental Status: mental status grossly normal Speech and Movement: speech and movement normal Mood: congruent mood Affect: normal affect Attitude: cooperative Thought Process: normal Thought Content: normal Judgment: judgment good Objective Imaging OB Ultrasound: Radiologist's impression: FINDINGS:? A single living intrauterine gestation is present.? Presentation:? Cephalic.? Placenta:? Placental position is anterior, without previa.? ? Amniotic fluid index:? 2.9 cm, normal range is 5-24 cm. heart rate:? 169 beats per minute.? Maternal cervical canal:? The cervix is not seen. Estimated gestational age from initial scan:? 35 weeks 5 days. Estimated gestational age today:? 34 weeks 5 days Estimated weight:? 2358 g, 13th percentile. Biophysical profile 09/24 (tone 2, movement 2, respiration 2, largest pocket 0) Umbilical artery S/D:? 2.75, 2.66? anatomy:? The stomach/abdomen, left renal region, and urinary bladder and pelvis are normal.? Other anatomic structures are not well seen. ? ? IMPRESSION:? 1. Oligohydramnios. 2. Single live intrauterine with a composite gestational age of 35 weeks 5 days. 3. The cervix is not seen. 4. Biophysical profile 09/24.? Labs Result Diagrams: 08/22/21 14:13 08/22/21 14:13 Labs: Laboratory Results - last 24 hr 08/22/21 08/22/21 14:13 Unknown WBC 17.5 H RBC 3.34 L Hgb 11.0 L Hct 31.6 L MCV 94.6 MCH 32.8 MCHC 34.6 RDW 12.3 Plt Count 239 Neut % (Auto) 73.0 Lymph % (Auto) 13.0 L [place] % (Auto) 6.2 Eos % (Auto) 7.2 H Baso % (Auto) 0.6 Neut # (Auto) 71549 H Lymph # (Auto) 2300 [place] # (Auto) 1100 H Eos # (Auto) 1300 H Baso # (Auto) 100 U Random Total Protein 11 Urine Creatinine 67.3 Protein/Creatinin Ratio 0.16 Evaluation Evaluation Baseline heart rate: 135 Variability: Moderate (11-25) monitor accelerations: Present Monitor Decelerations: Absent Category of Tracing: Reactive Status: Category l Diagnosis, Plan/Disposition Final Diagnosis (1) Oligohydramnios: Status: Acute (2) Elevation of levels of liver transaminase levels: Status: Acute (3) Hypertension affecting : Status: Acute (4) : Status: Acute (5) Abnormal WBC count: Status: Acute Plan/Disposition Plan: Blood pressure is well controlled, no significant proteinuria, and mildly elevated LFT's are improving/stable therefore preeclampsia would seem less likely but the oligohydramnios and elevated WBC with elevated monocyte and eosinophil counts are concerning. GBS obtained and submitted. She will continue Labetalol and bedrest while keeping a close watch on activity with her next NST/BPP is scheduled for [facility] 08/26/2021 at 11:00 and will discuss induction with MFM folowing that visit with delivery location dependent on staffing here and Peds comfort with delivery at 36 weeks. Labor precautions and close observation of BP and activity emphasized.
[2021-08-22 16:20] LABS: Alanine Aminotransferase 39 IU/L (<35); Albumin 3.7 g/dL (3.5-5.0); Albumin Globulin Ratio 1.1 (1.0-2.8); Alkaline Phosphatase 140 U/L (38-126); Aspartate Aminotransferase 30 IU/L (14-36); BUN Creatinine Ratio 14.3 (6-22); Bilirubin Total 0.4 mg/dL (0.2-1.3); Blood Urea Nitrogen 9 mg/dL (7-17); Calcium 9.1 mg/dL (8.4-10.2); Carbon Dioxide 20 mmol/L (22-32); Chloride 107 mmol/L (98-107); Estimated Glomerular Filt Rate > 60 mL/min (>60); Globulin 3.4 g/dL (1.7-4.1); Glucose 91 mg/dL (70-100); HEMOLYSIS < 15 (0-50); Sodium 132 mmol/L (137-145); Total Protein 7.1 g/dL (6.3-8.2); Uric Acid 5.5 mg/dL (2.5-6.2)
== END 2021-08-22 16:55 | disposition home or self-care (01) ==
PROVIDERS: Admitting Provider Obstetrics & Gynecology; PCP Nurse Practitioner Family; Referring Provider Obstetrics & Gynecology; Visit Provider Obstetrics & Gynecology
DX: O13.3 Gestational [pregnancy-induced] hypertension without significant proteinuria, third trimester (principal); O41.03X0 Oligohydramnios, third trimester, not applicable or unspecified; O26.893 Other specified pregnancy related conditions, third trimester; R74.01 Elevation of levels of liver transaminase levels; D72.829 Elevated white blood cell count, unspecified; Z3A.35 35 weeks gestation of pregnancy
CPT/HCPCS: 36415; 59025; 59050; 76815; 76819; 80053; 82570; 84156; 84550; 85025; G0378; G0379

== ENCOUNTER → 2021-08-22 17:26 | Outpatient (CLI) | payer BC, OTHER, SELFPAY ==
[2021-08-23 15:19] LABS: Strep Grp B PCR NEG for Grp B Strep
== END ==
PROVIDERS: PCP Nurse Practitioner Family; Visit Provider Obstetrics & Gynecology
DX: O16.3 Unspecified maternal hypertension, third trimester (principal); O41.03X0 Oligohydramnios, third trimester, not applicable or unspecified; Z3A.35 35 weeks gestation of pregnancy; R74.01 Elevation of levels of liver transaminase levels; D72.9 Disorder of white blood cells, unspecified; O13.3 Gestational [pregnancy-induced] hypertension without significant proteinuria, third trimester; O26.893 Other specified pregnancy related conditions, third trimester; D72.829 Elevated white blood cell count, unspecified
CPT/HCPCS: 36415; 59025; 59050; 76815; 76819; 76820; 80053; 82570; 84156; 84550; 85025; 87653; G0378; G0379

== ENCOUNTER → 2021-08-25 13:25 | Outpatient (CLI) | payer BC, OTHER, SELFPAY ==
[2021-08-25 13:51] LABS: Add Manual Diff / Slide Review YES; Hematocrit 32.6 % (36-46); Hemoglobin 11.1 g/dL (12.0-16.0); Mean Corpuscular HGB Conc 34.1 % (30-36); Mean Corpuscular Hemoglobin 32.4 PG (26-34); Platelet Count 212 X10^3/uL (150-400); Red Blood Cell Count 3.43 X10^6/uL (4.0-5.2); Red Cell Distribution Width 12.5 % (11.6-14.8); White Blood Cell Count 14.4 X10^3/uL (4.5-11.0)
[2021-08-25 14:05] LABS: Alanine Aminotransferase 26 IU/L (<35); Albumin 3.7 g/dL (3.5-5.0); Albumin Globulin Ratio 1.1 (1.0-2.8); Alkaline Phosphatase 135 U/L (38-126); Aspartate Aminotransferase 24 IU/L (14-36); BUN Creatinine Ratio 13.6 (6-22); Bilirubin Total 0.5 mg/dL (0.2-1.3); Blood Urea Nitrogen 8 mg/dL (7-17); Calcium 8.9 mg/dL (8.4-10.2); Carbon Dioxide 21 mmol/L (22-32); Chloride 105 mmol/L (98-107); Estimated Glomerular Filt Rate > 60 mL/min (>60); Globulin 3.5 g/dL (1.7-4.1); Glucose 83 mg/dL (70-100); HEMOLYSIS < 15 (0-50); Potassium 4.3 mmol/L (3.4-5.1); Sodium 132 mmol/L (137-145); Total Protein 7.2 g/dL (6.3-8.2); Uric Acid 5.5 mg/dL (2.5-6.2)
[2021-08-25 14:39] LABS: Neutrophils Absolute Manual 10368 /uL (3000-5900); RBC Morphology Normal Morphology; Total Cells Counted 100
[2021-08-25 15:24] LABS: Creatinine Urine Random 27.9 mg/dL; Protein (Total) Urine Random 12 mg/dL (0-12); Protein Creatinine Ratio Urine 0.43 GRAM/24H
== END ==
PROVIDERS: Obstetrics & Gynecology; PCP Nurse Practitioner Family; Referring Provider Family Medicine; Visit Provider Family Medicine
DX: O99.019 Anemia complicating pregnancy, unspecified trimester (principal); D72.9 Disorder of white blood cells, unspecified; O12.13 Gestational proteinuria, third trimester; O16.3 Unspecified maternal hypertension, third trimester; R74.01 Elevation of levels of liver transaminase levels; Z3A.35 35 weeks gestation of pregnancy
CPT/HCPCS: 36415; 80053; 82570; 84156; 84550; 85007; 85025

== ENCOUNTER 2021-08-26 17:55 | Inpatient (IN) | payer BC, OTHER, SELFPAY ==
--- NOTE | 2021-08-26 18:05 | PM.OBHP.1 ---
OB HPI Date/Time Date of admission: 08/26/21 Date Patient Seen: 08/26/21 Time Patient Seen: 18:05 History of Present Condition Chief complaint: : 3 Para: 0 Estimated Date of Delivery: 09/23/21 Estimated Gestational Age (weeks): 36+0 Narrative: Felecia Spence Case is a 30 year old at 36+ 0 weeks admitted for induction per recommendation of [facility] due to preeclampsia without severe features and oligohydramnios. GBS is negative. Indications Indication for induction OB: gestational HTN/pre-eclampsia and oligohydramnios History of Present care: good care Dating criteria: LMP confirmed by 1st trimester US Ultrasounds: normal 1st trimester US, normal mid trimester US and abnormal US findings (Oligohydramnios, 3rd trimester) Obstetrical complications: preeclampsia Medical complications: none Preadmission Labs Blood type: O (+) positive -: Antibody screen: negative, GBS status: negative, HBsAG: negative, HIV: negative and RPR/VDLR: negative -: Chlamydia screen: not detected and Gonorrhea screen: not detected -: Rubella: immune and Varicella: immune HCT: 32.6 HCAB: negative PAP: Normal Quad screen: Normal 1 hr GTT: 130 Prior (ies) History: SAB x 2 Evaluation Evaluation Baseline heart rate: 130 Variability: Moderate (11-25) monitor accelerations: Present Monitor Decelerations: Absent Contraction Frequency (minutes): 10 Uterine Contraction Intensity: Mild Category of Tracing: Reactive Status: Category l PFSH Medical History (Updated 08/26/21 @ 00:00 by ) Abnormal Pap smear of cervix (~2009) Chicken pox (~1993) Generalized anxiety disorder with panic attacks Heart murmur of Migraine (~2020) Surgical History (Updated 03/16/21 @ 20:05 by More Macias) [place] teeth extracted Family History (Updated 03/16/21 @ 20:07 by More Macias) Mother Alcoholic Family estrangement Father Myocardial infarction Stented coronary artery Grandmother Asthma Colostomy in place Grandfather Alcoholic Family history unknown Grandmother No problems noted. 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 ) substance use type: does not use during the past year weight has: remained stable well-balanced diet: daily or most days daily servings fruits/ve-4 caffeine: Yes (1/2 cup coffee daily. Cutting back on soda.) Type(s) of exercise: walking (daily walks and hiking), resistance training (Strength training & pilates. ) and yoga frequency: 3-4 times per week duration: 30-45 minutes/day Meds Home Medications and Allergies Home Medications Medication Instructions Recorded Confirmed Type doxylamine succinate 25 mg tablet 25 mg PO BEDTIME PRN 02/27/21 08/26/21 History (Unisom (doxylamine)) prenat.vits,valerie,suk-uhjs-fhdig 1 tab PO DAILY 02/27/21 08/26/21 History propranolol 20 mg tablet 20 mg PO BID PRN tab 02/27/21 08/26/21 History cetirizine 10 mg capsule (Zyrtec) 10 mg PO DAILY PRN #30 cap 04/01/21 08/26/21 Rx ondansetron HCl 4 mg tablet 4 mg PO Q6H PRN #20 tab 04/01/21 08/26/21 Rx (Zofran) labetalol 200 mg tablet 200 mg PO BID #60 tab 08/01/21 08/26/21 Rx Allergies Allergy/AdvReac Type Severity Reaction Status Date / Time No Known Drug Allergies Allergy Verified 08/13/21 14:21 OB Exam HENMT Head: normal to inspection, normocephalic and atraumatic Eyes General: appearance normal, both eyes and all related structures Resp Effort & Inspection: normal respiratory effort and able to speak in complete sentences Auscultation: clear to auscultation bilaterally Cardio Rate: regular rate Heart Sounds: S1 normal, S2 normal and no murmurs Extremities Lower extremity: Yes normal to inspection; No edema Brianna's Sign: Left (Negative) GI Inspection: normal to inspection Palpation: Yes soft, Yes no hepatosplenomegaly and No tender Presentation: vertex Estimated Weight (lbs): 7 Objective Labs Result Diagrams: 08/26/21 18:55 08/26/21 19:20 Assessment and Plan Assessment and Plan Assessment and Plan narrative: Intrauterine gestation, [place], vertex, 36+ 0 weeks gestational age Oligohydramnios Gestational hypertension/Preeclampsia without severe features Leukocytosis with monocytosis and eosinophilia Time Spent with Patient Total time spent with greater than 50% in coordination of care (as documented) at patient's floor/unit and/or counseling patient:: 15-24 minutes
[2021-08-26 18:53] LABS: COVID19 -Nasal RAPID Negative (Negative)
[2021-08-26 19:13] LABS: Add Manual Diff / Slide Review NO; Basophils Absolute Auto 100 /uL (0-100); Basophils Percent Auto 1.1 % (0-2); Eosinophils Absolute Auto 900 /uL (0-450); Eosinophils Percent Auto 6.7 % (2-4); Hemoglobin 10.7 g/dL (12.0-16.0); Lymphocytes Absolute Auto 2300 /uL (1100-4500); Lymphocytes Percent Auto 17.1 % (25-40); Mean Corpuscular HGB Conc 34.6 % (30-36); Mean Corpuscular Hemoglobin 32.8 PG (26-34); Mean Corpuscular Volume 94.7 fL (80-100); Monocytes Absolute Auto 1200 /uL (0-900); Monocytes Percent Auto 9.1 % (3-14); Neutrophils Absolute Auto 8800 /uL (1500-7000); Platelet Count 205 X10^3/uL (150-400); Red Blood Cell Count 3.27 X10^6/uL (4.0-5.2); Red Cell Distribution Width 12.6 % (11.6-14.8); White Blood Cell Count 13.3 X10^3/uL (4.5-11.0)
[2021-08-26 19:50] LABS: Alanine Aminotransferase 29 IU/L (<35); Albumin 3.5 g/dL (3.5-5.0); Alkaline Phosphatase 126 U/L (38-126); Aspartate Aminotransferase 33 IU/L (14-36); BUN Creatinine Ratio 14.8 (6-22); Bilirubin Total 0.3 mg/dL (0.2-1.3); Blood Urea Nitrogen 9 mg/dL (7-17); Calcium 8.9 mg/dL (8.4-10.2); Carbon Dioxide 22 mmol/L (22-32); Chloride 106 mmol/L (98-107); Estimated Glomerular Filt Rate > 60 mL/min (>60); Globulin 3.4 g/dL (1.7-4.1); Glucose 87 mg/dL (70-100); HEMOLYSIS < 15 (0-50); Sodium 134 mmol/L (137-145); Total Protein 6.9 g/dL (6.3-8.2); Uric Acid 5.3 mg/dL (2.5-6.2)
[2021-08-26 21:10] VITALS: BP 138/78; PULSE 85
[2021-08-26] MEDS: LABETALOL 100 MG TABLET 200 MG PO (21:10)
[2021-08-26 21:53] VITALS: BP 121/66; PULSE 83
[2021-08-26] MEDS: miSOPROStoL 25 MCG TABLET 50 MCG PO (21:54)
[2021-08-26 22:36] VITALS: BP 121/66
[2021-08-27 03:40] LABS: Creatinine Urine Random 66.3 mg/dL; Protein (Total) Urine Random 18 mg/dL (0-12); Protein Creatinine Ratio Urine 0.27 GRAM/24H
[2021-08-27] MEDS: miSOPROStoL 25 MCG TABLET 50 MCG PO (03:51)
[2021-08-27] MEDS: CALCIUM CARBONATE 500 MG TAB PO (03:51)
[2021-08-27] MEDS: ZOLPIDEM 5 MG TABLET PO (03:51)
--- NOTE | 2021-08-27 08:02 | PM.OBPNLAB ---
Date/Time Date Patient Seen: 08/27/21 Time Patient Seen: 08:02 Pain Control Pain control: tolerating well Comments: Patient received 2 doses of oral Cytotec overnight Pelvic Exam Dilation (cm): 2 Effacement (%): 80 station: -1 Amniotic membrane status: Intact Contractions Contractions on admission: irregular Monitor mode: External Contraction pattern: Irregular Contraction phase: Resting Contraction intensity: Mild Status status: Category l Heart Rate Baseline: 130 Monitor Accelerations: Present Monitor Decelerations: Absent Monitor Variability: Moderate Assessment and Plan Assessment: induction ongoing Plan: begin patient augmentation
[2021-08-27 09:04] VITALS: BP 132/76; PULSE 77
[2021-08-27] MEDS: LABETALOL 100 MG TABLET 200 MG PO ×2 (09:04→22:26)
[2021-08-27] MEDS: LACTATED RINGERS 1,000 ML 100 ML IV ×2 (09:06→13:59)
[2021-08-27] MEDS: OXYTOCIN PREMIX 30 UNIT/500 ML PLAST..BAG IV (09:44)
[2021-08-27 11:09] VITALS: BP 122/70; PULSE 85
--- NOTE | 2021-08-27 13:16 | PM.OBPNLAB ---
Date/Time Date Patient Seen: 08/27/21 Time Patient Seen: 13:17 Pain Control Pain control: tolerating well Comments: Requesting BRENTON Pelvic Exam Dilation (cm): 5 Effacement (%): 90 Amniotic membrane status: Ruptured Comments: AROM performed 1314. No fluid seen. Contractions Contractions on admission: none Monitor mode: External Pitocin rate (mU/min): 8 Contraction frequency (min): 3 Contraction duration (min): 1 Contraction pattern: Regular Contraction phase: Resting Contraction intensity: Moderate Status status: Category l Heart Rate Baseline: 135 Monitor Accelerations: Present Monitor Decelerations: Early and Episodic Monitor Variability: Moderate Assessment and Plan Assessment: induction ongoing Plan: continuous present management Comments: OK for BRENTON placement.
[2021-08-27] MEDS: FENT 2MCG/ML BUPIV 0.125% EPI 200 MCG/100 ML PLAST..BAG 8 MCG EPIDURAL (14:02)
--- NOTE | 2021-08-27 15:23 | P.PCN_ITS ---
Regional Block Pre-procedure PSH/Anesthesia history narrative: at 37 weeks induction for PIH by BP. No other symptoms. Has had interesting course of elevated WBCs and LFTs during her , per Dr Bocanegra, but is doing better in those labs now. Labs: Hct 31.0 % (36-46) L 08/26/21 18:55 Plt Count 205 X10^3/uL (150-400) 08/26/21 18:55 Medications: Current Medications Generic Name Dose Route Start Last Admin Trade Name Freq PRN Reason Stop Dose Admin Calcium Carbonate 500 mg 08/27/21 03:41 08/27/21 03:51 Calcium Carbonate 500 Mg Tab PO 500 mg PRN PRN Administration Dyspepsia Carboprost Tromethamine 250 mcg 08/26/21 18:22 Carboprost 250 Mcg/Ml Ampul IM Q90M PRN Bleeding Diphenhydramine HCl 25 mg 08/27/21 13:25 Diphenhydramine 50 Mg/Ml Vial IV Q10M PRN Pruritis Fentanyl 50 mcg 08/26/21 18:22 Fentanyl 100 Mcg/2 Ml Inj IV Q1H PRN Pain, Moderate (4-6) Lactated Ringer's 1,000 mls @ 100 mls/hr 08/26/21 18:30 08/27/21 13:59 Lactated Ringers IV 100 mls/hr CONT CHELSIE Administration Oxytocin/Lactated Ringer's 30 unit in 500 mls @ 200 mls/hr 08/26/21 18:22 Oxytocin Premix IV CONT PRN Bleeding Protocol Tranexamic Acid 1,000 mg/ 100 mls @ 200 mls/hr 08/26/21 18:22 Sodium Chloride IV NOW PRN Bleeding Oxytocin/Lactated Ringer's 30 unit in 500 mls @ 2 mls/hr 08/27/21 08:37 08/27/21 09:44 Oxytocin Premix IV 2 milliunit/min TITRATE CHELSIE 2 mls/hr Administration Protocol 2 MILLIUNIT/MIN FENT 2MCG/ML BUPIV 0.125% EPI 200 mcg in 100 mls @ 6 mls/hr 08/27/21 13:30 Fentanyl/Bupiv/Ns 2mcg/Ml - 0.125% EPIDURAL CONT CHELSIE Labetalol HCl 200 mg 08/26/21 21:00 08/27/21 09:04 Labetalol 100 Mg Tablet PO 200 mg BID CHELSIE Administration Labetalol HCl 10 mg 08/26/21 19:46 Labetalol 20 Mg/4 Ml Syringe IV Q4HR PRN Heart Rate- High Methylergonovine Maleate 0.2 mg 08/26/21 18:22 Methylergonovine 0.2 Mg/Ml Vial IM NOW PRN Bleeding Methylergonovine Maleate 0.2 mg 08/26/21 18:22 Methylergonovine 0.2 Mg Tablet PO Q6HR PRN Heavy Bleeding Misoprostol 50 mcg 08/26/21 18:30 08/27/21 03:51 Misoprostol 25 Mcg Tablet PO 50 mcg Q6H [facility] Administration Misoprostol 400 mcg 08/26/21 18:22 Misoprostol 200 Mcg Tablet SL NOW PRN Bleeding Misoprostol 1,000 mcg 08/26/21 18:22 Misoprostol 200 Mcg Tablet SC NOW PRN Bleeding Misoprostol 800 mcg 08/26/21 18:22 Misoprostol 200 Mcg Tablet SC NOW PRN Bleeding Nalbuphine HCl 2.5 mg 08/27/21 13:25 Nalbuphine 20 Mg/Ml Ampul IV Q10M PRN Pruritis Naloxone HCl 0.2 mg 08/26/21 18: Naloxone 0.4 Mg/Ml Vial IV Q2MIN PRN Opiate Reversal Ondansetron HCl 8 mg 08/27/21 00:00 Ondansetron 4 Mg/2 Ml Inj IV Q6HR [facility] Oxytocin 10 unit 08/26/21 18:22 Oxytocin 10 Unit/Ml Vial IM NOW PRN Bleeding Zolpidem Tartrate 5 mg 08/26/21 18:22 08/27/21 03:51 Zolpidem 5 Mg Tablet PO 5 mg BEDTIME PRN Administration Sleep Allergies: Allergies Allergy/AdvReac Type Severity Reaction Status Date / Time No Known Drug Allergies Allergy Verified 08/13/21 14:21 Procedure Insertion date: 08/27/21 Insertion time: 13:40 Prep/Local: betadine x3 and 1% lidocaine Interspace: L 3-4 Patient position: sitting Needle: 17 gauge Tuohy Loss of resistance with: saline LEIGH ANN at (cm): 6 Catheter placed at SKIN (cm): 12 Insertion: No CSF, No Blood, No Paresthesia with insertion, No Paresthesia with injection and No Test dose reaction Initial Medications TEST DOSE time: 13:55 BOLUS DOSE time: 13:58 BOLUS DOSE med: other (Fentanyl 100 mcg) Infusion Initial rate (mL/hr): 8 Post-procedure Anesthesia time START: 13:40 Anesthesia time END: 20:44 Post-procedure Anesthesia Assessment: Yes CV function: HR/BP stable, Yes Resp function: RR/sat/airway adequate, Yes Post-op hydration adequate, Yes Pain control adequate, Yes Nausea & vomiting absent, Yes Temperature > 36 C and Yes Mental status appropriate
[2021-08-27] MEDS: ONDANSETRON 4 MG/2 ML INJ IV (18:03)
--- NOTE | 2021-08-27 18:09 | PM.OBPNLAB ---
Date/Time Date Patient Seen: 08/27/21 Time Patient Seen: 18:10 Pain Control Pain control: tolerating well and epidural Pelvic Exam Dilation (cm): 10 Effacement (%): 100 station: -1 Amniotic membrane status: Ruptured Contractions Monitor mode: External Pitocin rate (mU/min): 8 Contraction frequency (min): 3 Contraction duration (min): 1 Contraction pattern: Regular Contraction phase: Resting Contraction intensity: Moderate Status status: Category l Heart Rate Baseline: 115 Monitor Accelerations: Present Monitor Decelerations: Absent Monitor Variability: Moderate Comments: Bsaeline FHR has dropped to 115 BPM with initiation of pushing. Direct OP positition. Assessment and Plan Assessment: induction ongoing Plan: continuous present management and other (Start pushing in 2nd stage.)
--- NOTE | 2021-08-27 21:13 | P.PCNOB_ITS ---
Events: Induced HTN and Oligohydramnios Labor & Delivery Delivery date: 08/27/21 Cervical ripening method: per misoprostal protocol Induction method: AROM Delivery augmentation: rupture of membranes Delivery monitor: external FHT and external uterine Route of delivery: Episiotomy description: None L&D Laceration Description: Perineal - 2nd Degree Delivery repair: chromic Estimated blood loss (mL): 100 Anesthesia Type: Epidural Complications: None Narrative: The patient pushed vigorously and the 2nd stage but malposition slowed progress. The infant descended in right occiput posterior position and once the vertex at clear their ramus rotated spontaneously to IKER where the infant delivered over an intact perineum. No shoulder dystocia was encountered and there was no cord entanglement. Skin to skin contact was initiated immediately and delayed cord clamping for greater than 90 seconds was performed. The infant was vigorous, and routine cord blood studies were taken and submitted. The placenta was drained and delivered spontaneously with gentle cord traction and suprapubic countertraction. Placenta itself was intact with a central cord insertion and the cord itself had 3 vessels. Inspection of the perineum showed a second-degree perineal laceration which was repaired in the usual manner with 2-0 chromic catgut suture. Delivery was well tolerated by baby and mother and QBL at the completion of the delivery process was 100 cc. [place] Baby 1: gender: Male Presentation: vertex Position: Right Occiput Anterior Placenta delivery description: Spontaneous Cord Vessel Description: 3 Vessels score (1 min): 8 score (5 min): 9 weight: 6 lb 3.473 oz Plan for aftercare: Routine care
[2021-08-27 22:26] VITALS: BP 128/74; PULSE 77
[2021-08-27] MEDS: ACETAMINOPHEN 325 MG TABLET 650 MG PO (23:38)
[2021-08-27] MEDS: IBUPROFEN 600 MG TABLET PO (23:38)
[2021-08-28 07:18] LABS: Add Manual Diff / Slide Review NO; Basophils Absolute Auto 200 /uL (0-100); Basophils Percent Auto 1.3 % (0-2); Eosinophils Absolute Auto 300 /uL (0-450); Hematocrit 27.1 % (36-46); Hemoglobin 9.2 g/dL (12.0-16.0); Lymphocytes Absolute Auto 1700 /uL (1100-4500); Lymphocytes Percent Auto 11.6 % (25-40); Mean Corpuscular HGB Conc 34.1 % (30-36); Mean Corpuscular Hemoglobin 32.4 PG (26-34); Mean Corpuscular Volume 95.1 fL (80-100); Monocytes Absolute Auto 1200 /uL (0-900); Monocytes Percent Auto 8.3 % (3-14); Neutrophils Absolute Auto 11000 /uL (1500-7000); Neutrophils Percent Auto 76.8 % (50-75); Platelet Count 161 X10^3/uL (150-400); Red Blood Cell Count 2.85 X10^6/uL (4.0-5.2); Red Cell Distribution Width 12.8 % (11.6-14.8); White Blood Cell Count 14.4 X10^3/uL (4.5-11.0)
--- NOTE | 2021-08-28 07:53 | PM.OBDS.1 ---
Discharge Providers Provider Date of admission: 08/26/21 17:55 Discharge Date: 08/28/21 Primary care physician: EDNA Palma Consults: 08/28/21 21:10 Consult to [employer] Routine Comment: Discharge provider: Cyrus Bocanegra MD Summary Hospital Course Date Patient Seen: 08/28/21 Time Patient Seen: 07:35 Diagnoses: Intrauterine , Dorsey, vertex, delivered, 36+ 1 weeks gestational age Gestational hypertension/preeclampsia without severe features Oligohydramnios Chronic anemia Hospital Course: Chyna was admitted on the evening of 08/26/2021 for cervical ripening at 36 +0 weeks gestational age due to gestational hypertension/preeclampsia without severe features requiring labetalol 200 mg p.o. b.i.d. for blood pressure control and the development of oligohydramnios with equivocal testing on the date of admission resulting in the recommendation for immediate delivery[facility] Oral Cytotec was used to ripen the cervix and the patient progressed nicely into prodromal labor which was augmented with Pitocin. AROM produced minimal fluid and her labor progressed into the evening of 08/27/2021 when she delivered a viable male Apgars of 8 and 9 with a weight of 2820 g (6 lb 3.5 oz). She sustained a second-degree perineal laceration with an estimated blood loss at delivery approximately 100 cc. Following the delivery her infant son developed respiratory and blood sugar control issues which necessitated transfer to the and ICU at [facility] late on the night of 08/28/2021. Following delivery, bleeding has become minimal, she is ambulating independently, she is tolerating regular diet, pain is well controlled with oral medications, and her blood pressure has remained in the mildly hypertensive range on continued labetalol. PIH/preeclampsia labs during the admission have been negative. Patient will be discharged on medications to include labetalol 200 mg p.o. b.i.d., vitamin 1 p.o. q.d., Colace 100 mg p.o. b.i.d. times 30 days, ibuprofen 600 mg p.o. q.6 hours as needed pain. Prior to discharge the patient was counseled regarding precautionary symptoms, limitations of activity, medications, and plans for follow-up which will be in 2 weeks for blood pressure recheck and in 6 weeks for a 6 week check. Peripartum Data Infant Delivery Method: Natural Vaginal Laceration Description: Perineal - 2nd Degree Episiotomy description: None complications: none [place] 1: Gender: Male Disposition of : NICU ([facility]) Status at Discharge Cognitive/behavioral status at discharge: oriented Functional status at discharge: independent ambulation Overall status at discharge: patient is progressing back to baseline Time Spent with Patient Time attestation: Total time spent providing and/or coordinating discharge services: Time spent: Less than 30 minutes Objective Labs Result Diagrams: 08/28/21 06:10 08/26/21 19:20 Labs: Laboratory Results - last 24 hr 08/28/21 06:10 WBC 14.4 H RBC 2.85 L Hgb 9.2 L Hct 27.1 L MCV 95.1 MCH 32.4 MCHC 34.1 RDW 12.8 Plt Count 161 Neut % (Auto) 76.8 H Lymph % (Auto) 11.6 L Price % (Auto) 8.3 Eos % (Auto) 2.0 Baso % (Auto) 1.3 Neut # (Auto) 87270 H Lymph # (Auto) 1700 Price # (Auto) 1200 H Eos # (Auto) 300 Baso # (Auto) 200 H Exam Const General: cooperative and comfortable Nutritional Appearance: average body habitus Orientation: alert and oriented x3 HENMT Head: normal to inspection Eyes General: appearance normal, both eyes and all related structures Neck Neck: normal visual inspection Resp Effort & Inspection: normal respiratory effort and able to speak in complete sentences GI Palpation: soft, no hepatosplenomegaly and mass (Firm, nontender fundus, U -6) Other: Perineum intact, healing. Extrem General: no calf tenderness Psych Appearance: grossly normal Mental Status: mental status grossly normal Speech and Movement: speech and movement normal Mood: congruent mood Affect: normal affect Attitude: cooperative Thought Process: normal Thought Content: normal Judgment: judgment good Discharge Plan Discharge Plan Patient Disposition: Home Provider Discharge Comment: Please review the written instructions he received when you were discharged from the hospital. Appointments for your 2 and 6 week post-delivery visits will be made before you leave the hospital and I look forward to seeing you then. If in the meanwhile however you have any issues, concerns, or problems, please contact me directly. Discharge orders & Medications Prescriptions: New docusate sodium 100 mg Capsule 100 mg PO BID 30 Days Qty: 60 0RF ibuprofen 600 mg Tablet 600 mg PO Q6HR PRN (Reason: Pain, Mild (1-3)) Qty: 60 2RF Continued labetalol 200 mg tablet 200 mg PO BID Qty: 60 4RF ondansetron HCl [Zofran] 4 mg tablet 4 mg PO Q6H PRN (Reason: nausea and vomiting) Qty: 20 3RF Zyrtec 10 mg capsule 10 mg PO DAILY PRN (Reason: allergy symptoms) Qty: 30 12RF prenat.vits,valerie,yms-fbfi-qqsfv Tablet 1 tab PO DAILY 0RF Unisom (doxylamine) 25 mg tablet 25 mg PO BEDTIME PRN (Reason: Sleep) 0RF Discontinued propranolol 20 mg tablet 20 mg PO BID PRN (Reason: Hypertension) 0RF Follow up/Referrals: Kamila Ruff ARNP [Primary Care Provider] - Discharge Health Status Health Concerns: Continue checking her blood pressure at home and notify your provider immediately if blood pressure increases to a level of 150/100 or greater. Multidrug resistant organism: No MDRO Diet/Activity/Treatments Diet: Diet as Tolerated Activity: As tolerated. Other treatments: Over the counter Tylenol for pain/fever. Increase the amounts of iron-rich foods in your diet and take a vitamin daily. Skin/Wound/Dressing Care Report to your healthcare provider any signs of infection, such as:: chills, fever, increased pain, unusual drainage and unusual redness Dressing: N/A Visit Report/Discharge Packet Instructions: DI for Labor and Delivery, Vaginal , DI for Premature , DI for and Nipple Soreness Discharge Data Primary Care Provider: Kamila Ruff
[2021-08-28] MEDS: DOCUSATE 100 MG CAPSULE PO (08:36)
[2021-08-28] MEDS: ACETAMINOPHEN 325 MG TABLET 650 MG PO (08:36)
[2021-08-28] MEDS: IBUPROFEN 600 MG TABLET PO (08:36)
[2021-08-28] MEDS: PRENATAL VIT,CALC/IRON/FOLIC 1 TABLET 1 TAB PO (08:36)
[2021-08-28 08:37] VITALS: BP 128/82; PULSE 76
[2021-08-28] MEDS: LABETALOL 100 MG TABLET 200 MG PO (08:37)
[2021-08-28 08:43] LABS: Alanine Aminotransferase 24 IU/L (<35); Albumin 2.8 g/dL (3.5-5.0); Albumin Globulin Ratio 0.9 (1.0-2.8); Alkaline Phosphatase 95 U/L (38-126); Aspartate Aminotransferase 35 IU/L (14-36); BUN Creatinine Ratio 12.3 (6-22); Bilirubin Total 0.6 mg/dL (0.2-1.3); Blood Urea Nitrogen 8 mg/dL (7-17); Calcium 8.8 mg/dL (8.4-10.2); Carbon Dioxide 24 mmol/L (22-32); Chloride 107 mmol/L (98-107); Estimated Glomerular Filt Rate > 60 mL/min (>60); Glucose 97 mg/dL (70-100); HEMOLYSIS < 15 (0-50); Potassium 4.1 mmol/L (3.4-5.1); Sodium 135 mmol/L (137-145); Total Protein 5.8 g/dL (6.3-8.2)
[2021-08-28 08:50] VITALS: BP 128/82; PULSE 97; RESP 16; TEMP 36.9
== END 2021-08-28 11:08 | disposition home or self-care (01) | DRG 806 ==
PROVIDERS: Admitting Provider Obstetrics & Gynecology; PCP Nurse Practitioner Family; Referring Provider Obstetrics & Gynecology; Visit Provider Obstetrics & Gynecology
DX: O14.04 Mild to moderate pre-eclampsia, complicating childbirth (principal); O41.03X0 Oligohydramnios, third trimester, not applicable or unspecified; Z37.0 Single live birth; O12.13 Gestational proteinuria, third trimester; Z3A.36 36 weeks gestation of pregnancy; O70.1 Second degree perineal laceration during delivery; O99.02 Anemia complicating childbirth; D64.9 Anemia, unspecified; Z20.822 Contact with and (suspected) exposure to COVID-19; O99.019 Anemia complicating pregnancy, unspecified trimester; D72.9 Disorder of white blood cells, unspecified; O16.3 Unspecified maternal hypertension, third trimester; R74.01 Elevation of levels of liver transaminase levels; Z3A.35 35 weeks gestation of pregnancy
CPT/HCPCS: 01967; 36415; 59050; 59200; 59400; 80053; 82570; 84156; 84550; 85007; 85025; 86850; 86900; 86901; 87635; C9803; G0379; J2405; J2590; J3010

== ENCOUNTER → 2023-10-11 08:46 | Outpatient (CLI) | payer OTHER, SELFPAY ==
--- NOTE | 2023-10-11 08:47 | DI.US.S_ITS ---
PROCEDURE: US OB <= 14 WEEKS FETUS INDICATIONS: DATES OUTSIDE/PRIOR DATING DATA: Last menstrual period (LMP): 08/08/2023. LMP-based estimated date of delivery (CHRISTINA): 05/14/2024. First dating scan (date and location): 10/11/2023. Estimated date of delivery (CHRISTINA) from first dating scan: 05/12/2024. TECHNIQUE: Real-time scanning was performed of the fetus and maternal pelvic organs, with image documentation. Endovaginal scanning was also performed to better visualize the fetus and maternal ovaries. COMPARISON: None FINDINGS: Embryo: Single live intrauterine is present with crown-rump length measuring 2.7 cm corresponding to 9 weeks 3 days. Heart rate: 169 beats per minute Maternal organs: Ovaries demonstrate a left corpus luteal cyst. IMPRESSION: Single live intrauterine with gestational age of 9 weeks 3 days. Recommend followup imaging at 20-22 weeks for dates and anatomy. We strive to produce accurate, complete, and clear reports of imaging services. To assist us in improving patient care, this report was composed using standard report templates and voice recognition software. Therefore, it may contain abnormal punctuation, insertions and/or omissions. Occasional wrong-word or sound-alike substitutions may occur. Though we review the report and make efforts to correct it, we do recommend that the report be read carefully in proper context to recognize any text inaccuracies. Dictated by: Mamie Angel M.D. on 10/11/2023 at 16:00 Approved by: Mamie Angel M.D. on 10/11/2023 at 16:01
== END ==
PROVIDERS: Referring Provider Obstetrics & Gynecology; Visit Provider Obstetrics & Gynecology
DX: Z34.81 Encounter for supervision of other normal pregnancy, first trimester (principal); Z3A.09 9 weeks gestation of pregnancy
CPT/HCPCS: 76801; 76817

== ENCOUNTER → 2023-11-03 10:59 | Outpatient (CLI) | payer OTHER, SELFPAY ==
[2023-11-03 12:01] LABS: Add Manual Diff / Slide Review NO; Basophils Absolute Auto 100 /uL (0-100); Basophils Percent Auto 0.5 % (0-2); Eosinophils Absolute Auto 200 /uL (0-450); Eosinophils Percent Auto 2.1 % (2-4); Hematocrit 36.6 % (36-46); Hemoglobin 12.5 g/dL (12.0-16.0); Lymphocytes Absolute Auto 2300 /uL (1100-4500); Lymphocytes Percent Auto 21.6 % (25-40); Mean Corpuscular Hemoglobin 32.5 PG (26-34); Mean Corpuscular Volume 95.6 fL (80-100); Monocytes Absolute Auto 500 /uL (0-900); Monocytes Percent Auto 4.5 % (3-14); Neutrophils Absolute Auto 7600 /uL (1500-7000); Neutrophils Percent Auto 71.3 % (50-75); Platelet Count 214 X10^3/uL (150-400); Red Blood Cell Count 3.83 X10^6/uL (4.0-5.2); Red Cell Distribution Width 12.2 % (11.6-14.8); White Blood Cell Count 10.6 X10^3/uL (4.5-11.0)
[2023-11-03 12:07] LABS: Natera Collection Specimen Collected
[2023-11-03 12:34] LABS: Alanine Aminotransferase 18 IU/L (<35); Albumin Globulin Ratio 1.2 (1.0-2.8); Alkaline Phosphatase 62 U/L (38-126); Aspartate Aminotransferase 25 IU/L (14-36); BUN Creatinine Ratio 16.9 (6-22); Bilirubin Total 0.9 mg/dL (0.2-1.3); Bilirubin Unconjugated 0.6 mg/dL (0.0-1.1); Blood Urea Nitrogen 10 mg/dL (7-17); Estimated Glomerular Filt Rate > 60 mL/min (>60); Globulin 3.3 g/dL (1.7-4.1); HEMOLYSIS < 15 (0-50); Total Protein 7.3 g/dL (6.3-8.2); Uric Acid 3.4 mg/dL (2.5-6.2)
[2023-11-04 07:37] LABS: RPR Screen Non Reactive (Non Reactive)
[2023-11-04 08:37] LABS: Varicella IgG Antibody 1098 index (Immune >165)
[2023-11-04 17:02] LABS: Hepatitis B Surface Antigen NEGATIVE s/c (NEGATIVE); Rubella Antibody IgG 27.7 IU/mL (>15)
[2023-11-04 17:20] LABS: HIV 1 & 2 Ab/Ag 4th Gen Combo NEGATIVE (NEGATIVE); Hep C Virus Ab w/Reflex Quant NEGATIVE s/c (NEGATIVE)
== END ==
PROVIDERS: Referring Provider Obstetrics & Gynecology; Visit Provider Obstetrics & Gynecology
DX: O09.521 Supervision of elderly multigravida, first trimester (principal); O09.299 Supervision of pregnancy with other poor reproductive or obstetric history, unspecified trimester
CPT/HCPCS: 36415; 80055; 80076; 82565; 84520; 84550; 86787; 86803; 86850; 86900; 86901; 87086; 87389

== ENCOUNTER → 2023-12-03 08:16 | Outpatient (CLI) | payer OTHER, SELFPAY ==
[2023-12-06 13:36] LABS: AFP Value 35.7 ng/mL (.); Gest Age on Col Date 16.7 weeks (.); Insulin Dep Diabetes No (.); OSBR Risk 1IN 10000 (.); Results Report (.); Test Results *Screen Negative* (.)
== END ==
PROVIDERS: Referring Provider Student in an Organized Health Care Education/Training Program; Visit Provider Student in an Organized Health Care Education/Training Program
DX: Z36.0 Encounter for antenatal screening for chromosomal anomalies (principal)
CPT/HCPCS: 36415; 82105

== ENCOUNTER → 2023-12-23 08:49 | Outpatient (CLI) | payer OTHER, SELFPAY ==
--- NOTE | 2023-12-23 08:50 | DI.US.S_ITS ---
PROCEDURE: OB >= 14 WEEKS FETUS INDICATIONS: ANATOMY OUTSIDE/PRIOR DATING DATA: Last menstrual period (LMP): 08/08/2023. LMP-based estimated date of delivery (CHRISTINA): 05/14/2024 First dating scan (date and location): 10/11/2023. Estimated date of delivery (CHRISTINA) from first dating scan: 05/12/2024. The calculations are made using the clinical CHRISTINA of 05/14/2024. TECHNIQUE: Real-time scanning was performed of the fetus, with image documentation and biometric measurements. COMPARISON: [facility], OB >= 14 WEEKS FETUS, 05/07/2021, 14:26. [facility], OB <= 14 WEEKS FETUS, 10/11/2023, 9:06. FINDINGS: General: A single living intrauterine gestation is present. Presentation: Variable. Placenta: Placental position is anterior , without previa. Amniotic fluid index: 14 cm, normal range is 5-24 cm. Single deepest vertical pocket is 3.9 cm. heart rate: 139 beats per minute. Maternal cervical canal: 4.1 cm long. Normal lower limit is 2.5 cm. biometrics: Biparietal diameter: 4.7 cm 20 weeks 1 day Head circumference: 17.0 cm 19 weeks 4 days Abdominal circumference: 15.4 cm 20 weeks 4 days Femur length: 3.2 cm 19 weeks 6 days Clinically estimated gestational age: 19 weeks 4 days Composite gestational age from present scan: 20 weeks 0 days Estimated weight and percentile: 337 g 80th percentile Anatomic survey: Neuro: Ventricles are non-dilated at less than 10 mm. Cisterna magna is normal at 3-11 mm. Cerebellum is normal in size and morphology. Nuchal skin fold: Normal at less than 6 mm between 14-21 weeks gestational age. Face: Nose and lips, facial profile are normal. Spine: No evidence for spina bifida. Heart: 4-chambered heart is present, with normal ventricular outflow tracts. Diaphragm: Diaphragm is intact. Stomach: Left-sided stomach is present. Kidneys: No hydronephrosis. Normal is less than 5 mm in 2nd trimester, less than 7 mm in 3rd trimester. Cord: 3-vessel cord has orthotopic insertion. Bladder: Normal in size. Extremities: All 4 extremities identified. IMPRESSION: Single live intrauterine with gestational age today of 20 weeks 0 days. Anatomy is within normal limits. We strive to produce accurate, complete, and clear reports of imaging services. To assist us in improving patient care, this report was composed using standard report templates and voice recognition software. Therefore, it may contain abnormal punctuation, insertions and/or omissions. Occasional wrong-word or sound-alike substitutions may occur. Though we review the report and make efforts to correct it, we do recommend that the report be read carefully in proper context to recognize any text inaccuracies. Dictated by: Mamie Angel M.D. on 12/23/2023 at 22:28 Approved by: Mamie Angel M.D. on 12/23/2023 at 22:30
== END ==
PROVIDERS: Referring Provider Obstetrics & Gynecology; Visit Provider Obstetrics & Gynecology
DX: Z34.82 Encounter for supervision of other normal pregnancy, second trimester (principal); Z3A.20 20 weeks gestation of pregnancy
CPT/HCPCS: 76811

== ENCOUNTER → 2024-02-05 11:11 | Outpatient (CLI) | payer OTHER, SELFPAY ==
[2024-02-05 12:30] LABS: Hematocrit 34.5 % (36-46); Hemoglobin 11.8 g/dL (12.0-16.0)
[2024-02-05 13:11] LABS: GTT (PREG) 1 Hour PP 50gm Dose 152 mg/dL (76-139)
== END ==
PROVIDERS: Referring Provider Obstetrics & Gynecology; Visit Provider Obstetrics & Gynecology
DX: Z13.0 Encounter for screening for diseases of the blood and blood-forming organs and certain disorders involving the immune mechanism (principal); Z13.1 Encounter for screening for diabetes mellitus
CPT/HCPCS: 36415; 82950; 85014; 85018

== ENCOUNTER → 2024-02-22 07:58 | Outpatient (CLI) | payer OTHER, SELFPAY ==
[2024-02-22 10:03] LABS: Glucose Fasting Gestational 82 mg/dL (76-95)
[2024-02-22 10:35] LABS: Glucose 1 Hour Gest 178 mg/dL (76-180)
[2024-02-22 11:36] LABS: Glucose Tol Interp,Gestational INTERPRETATION
[2024-02-22 11:44] LABS: Glucose 2 Hour Gest 166 mg/dL (76-155)
[2024-02-22 13:42] LABS: Glucose 3 Hour Gest 104 mg/dL (76-140)
== END ==
PROVIDERS: Referring Provider Obstetrics & Gynecology; Visit Provider Obstetrics & Gynecology
DX: R73.09 Other abnormal glucose (principal); Z13.1 Encounter for screening for diabetes mellitus; Z13.0 Encounter for screening for diseases of the blood and blood-forming organs and certain disorders involving the immune mechanism
CPT/HCPCS: 82951; 82952

== ENCOUNTER → 2024-02-25 07:17 | Outpatient (CLI) | payer OTHER, SELFPAY ==
--- NOTE | 2024-02-25 08:09 | DIAB.GDA ---
Addendum entered by Chen Potts 03/01/24 16:41: Spoke on the phone today with pt: All FBG <95mg/dl. Some elevated 1 hour after high CHO intake, but overall numbers in goal. F/u next week. Original Note: Initial Gestational Diabetes Assessment Name: CaseFelecia Date: 02/25/24 Time: 520-962u Dx: Gestational Diabetes Provider: Daljit CHRISTINA: 05/14/24 Weeks: 28-29 Felecia presents for initial GDM visit. Denies any PMH or FH of T2DM. States her main concern is how GDM will impact baby. Has a 2 y/o boy. 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 She is having a boy! Diet recall; 7a: british muffin with butter, +/- grapes or apple or berries + 7g CHO yogurt with granola occasional cereal sn: nothing or pretzels or carrots/celery 1p: sub sandwich 6 with chips or 5 x rolled tacos sn: saltines if nausea 7-8p: protein, veggies, 1c starch water 4x 34oz, coke zero, occasional juice with iron supplement, coffee with low sugar creamer Anthropometrics: Ht: 63 Wt: 178# Prepregnancy wt: 143# Physical Activity: No program. Was exercising prior to 2nd trimester, but fatigue and nausea barriers. Considering restarting walking. Self-Monitoring Blood Glucose: checking FBG and 1 hour since yesterday. All in goal. Has some questions regarding accuracy of meter. Date Pre Post Pre Post Pre Post HS 02/23 94 94 126 120 02/24 90 118 Diabetes Medications: none Pertinent Labs: Screen: 152mg/dl OGTT: 82, 178, 166 H, 104 Nutrition Rx: Carbohydrates: Meal: 45-60g lunch and dinner; 30g breakfast Snack: 15-30g Nutrition Diagnosis: Altered nutrition related lab value r/t GDM dx aeb recent OGTT Excessive CHO intake r/t new dx aeb breakfast diet recall Undesireable food choice r/t needing review of listeria risk in aeb diet recall of cold cut sandwich intake Intervention: This participant was very receptive. Provided appropriate educational handouts. Discussed the following topics: GDM pathophysiology and impact of hyperglycemia on mom and baby Risk for T2DM for mom and baby in the future Ways to reduce risk T2DM Plate Method, meal timing, carb counting, pairing macronutrients and spreading out CHO for better BG management Blood glucose goals (FBG: <95 and 1 hour <140 mg/dL); importance of checking 4x per day (FBG and pc) Impact of macronutrients on blood glucose Recommended servings for carbohydrates at meals and snacks Brainstormed appropriate meal plan based on her food preferences Listeria risk and foods to avoid Role of physical activity and following provider guidelines for safety Goals: Check food labels for total CHO Keep breakfast to 30g pair CHO and protein Consider safe physical activity Avoid listeria risk foods Follow-up: HARRISON BOSWELL follow-up in two weeks 1:1, one week over phone. Chen Potts RDN, ANDREIA Certified Diabetes Care and Building Trades Instructor T: [phone] F: [phone] [email or web address] Thank you for this referral
== END ==
PROVIDERS: Referring Provider Obstetrics & Gynecology
DX: O24.419 Gestational diabetes mellitus in pregnancy, unspecified control (principal); Z3A.28 28 weeks gestation of pregnancy; Z71.3 Dietary counseling and surveillance
CPT/HCPCS: 97802

== ENCOUNTER → 2024-03-09 12:57 | Outpatient (CLI) | payer OTHER, SELFPAY ==
--- NOTE | 2024-03-14 17:30 | DIAB.GDFU ---
Follow-up Gestational Diabetes Assessment Name: Case,Felecia Spence Date: 03/09/24 Time: 1-2p Dx: Gestational Diabetes Provider: Daljit CHRISTINA: 05/14/24 Weeks: 30-31 Felecia presents for GDM visit. Denies any PMH or FH of T2DM. Reports being more active after a meal has reduced BG when implemented. Breakfast protein can be a challenge per report. Started low dose Metformin. Denies any SE though she is curious what SE occur. Diet recall; B: 1/2 bagel with cream cheese and yogurt OR egg and eng muffin L: BLT OR chx with veggies and brown rice OR turkey tacos Sn: celery and pb D: protein with 1/2c pasta and veg Avoiding listeria risk foods. Anthropometrics: Ht: 63 Wt: 181# 03/08/24 178# 02/23/24 Prepregnancy wt: 143# Physical Activity: No program.Though would like to walk more. Challenging with toddler son at this time to be more active intentionally. Self-Monitoring Blood Glucose: checking FBG and 1 hour. FBG all in goal. 3 elevated pc readings. Date Pre Post Pre Post Pre Post HS 03/03 92 112 123 150 03/04 84 121 97 114 03/05 89 113 135 116 03/06 80 108 144 129 03/07 92 95 127 117 03/08 92 122 102 149 03/09 86 118 Diabetes Medications: 500mg Metformin BID Pertinent Labs: Screen: 152mg/dl OGTT: 82, 178, 166 H, 104 Nutrition Rx: Carbohydrates: Meal: 45-60g lunch and dinner; 30g breakfast Snack: 15-30g Nutrition Diagnosis: Altered nutrition related lab value r/t GDM dx aeb recent OGTT Excessive CHO intake r/t new dx aeb breakfast diet recall - improved Undesireable food choice r/t needing review of listeria risk in aeb diet recall of cold cut sandwich intake- improved Intervention: This participant was very receptive. Provided appropriate educational handouts. Discussed the following topics: BG results and trends DM medications during SE of Metformin and how to reduce Physical activity strategies Protein options for breakfast Ways to increase protein at snacks Role of physical activity and following provider guidelines for safety Goals: Check food labels for total CHO- met Keep breakfast to 30g - met pair CHO and protein- in progress Consider safe physical activity - in progress Avoid listeria risk foods - met Try a short walk daily- new keep protein at breakfast- new Try nutritional yeast with popcorn- new Follow-up: HARRISON BOSWELL follow-up in 2 weeks. Chen Potts RDN, [facility] Certified Diabetes Care and Fabrication Inspector T: [phone] F: [phone] [email or web address] Thank you for this referral
== END ==
DX: O24.415 Gestational diabetes mellitus in pregnancy, controlled by oral hypoglycemic drugs (principal); Z3A.30 30 weeks gestation of pregnancy; Z71.3 Dietary counseling and surveillance
CPT/HCPCS: 97803

== ENCOUNTER → 2024-03-23 10:02 | Outpatient (CLI) | payer OTHER, SELFPAY ==
--- NOTE | 2024-03-23 10:46 | DIAB.GDFU ---
Follow-up Gestational Diabetes Assessment Name: Case,Felecia Spence Date: 03/23/24 Time: 100a Dx: Gestational Diabetes Provider: Daljit CHRISTINA: 05/14/24 Weeks: 32-33 Felecia presents for GDM visit via telehealth on Portal. States she has been being more consistent with protein at breakfast, ie shake or eggs Walking more after dinner now and sometimes after lunch depending work. Picked up nutritional yeast but not tried yet. Nausea potentially from starting Metformin. Also constipation, which she attributes to potential meds and/or supplement. Increased water intake recently. Yesterday OB increased Metformin to 1000mg BID. Pt reports he would like to see more FBG in the 70-80s. Felecia reports she may go back to 500mg BID if nausea worsens and cannot be managed with zofran. Last growth US in Dec did show 80th percentile estimated wt. Anthropometrics: Ht: 63 Wt: 182# 03/22/24 181# 03/08/24 178# 02/23/24 Prepregnancy wt: 143# Physical Activity: started walking 1-2x per day Self-Monitoring Blood Glucose: checking FBG and 1 hour. FBG all in goal. 2 elevated pc readings. Date Pre Post Pre Post Pre Post 03/17 91 132 127 104 03/18 89 144 127 111 03/19 88 101 116 03/20 93 112 101 123 03/21 94 109 106 145 03/22 84 101 133 03/23 92 119 Diabetes Medications: 1000mg Metformin BID Pertinent Labs: Screen: 152mg/dl OGTT: 82, 178, 166 H, 104 Nutrition Rx: Carbohydrates: Meal: 45-60g lunch and dinner; 30g breakfast Snack: 15-30g Nutrition Diagnosis: Altered nutrition related lab value r/t GDM dx aeb recent OGTT Intervention: This participant was very receptive. Provided appropriate educational handouts. Discussed the following topics: BG results and trends DM medications during Constipation MNT: fluids, fiber, and movement Protein options for breakfast Ways to increase protein at snacks Role of physical activity and following provider guidelines for safety Goals: Try a short walk daily- met keep protein at breakfast- met Try nutritional yeast with popcorn- in progress Continue walks- new Aim for adequate fiber/fluids- new Follow-up: HARRISON BOSWELL follow-up in 2 weeks. Chen Potts RDN, [place]RE[place] Certified Diabetes Care and Pot Firer T: [phone] F: [phone] [email or web address] Thank you for this referral
== END ==
PROVIDERS: Referring Provider Obstetrics & Gynecology
DX: O24.415 Gestational diabetes mellitus in pregnancy, controlled by oral hypoglycemic drugs (principal); Z3A.32 32 weeks gestation of pregnancy; Z71.3 Dietary counseling and surveillance
CPT/HCPCS: 97803